=== PATIENT | female | born 1960 | race Caucasian/White ===

== ENCOUNTER 2020-02-19 10:34 | Inpatient (IN) | payer BC, OTHER ==
[~2020-02-19] VITALS: Ht 162.6 cm; Wt 54.1 kg
[2020-02-19] MEDS ORDERED: AZITHROMYCIN 500MG/ 250ML 250 ML IV ONE (11:00)
[2020-02-19 12:04] LABS: Basophils # (auto) 0 10 ^3/uL (0-0.2); Basophils % (auto) 0.6 % (0.0-2.0); Eosinophils # (auto) 0.1 10 ^3/uL (0-0.8); Monocytes # (auto) 0.5 10 ^3/uL (0-1.3); White Blood Cell 5.5 10^3/uL (4.4-10.8)
[2020-02-19 12:06] LABS: Eosinophils % (auto) 1.7 % (0.0-7.0); Hematocrit 30.8 % (36.0-46.0); Hemoglobin 9.8 g/dL (12.2-16.2); Lymphocytes % (auto) 18.3 % (10.0-50.0); Mean Corpuscular Hemoglobin 26.6 pg (28.0-32.0); Mean Corpuscular Hgb Conc. 31.7 g/dL (32.0-36.0); Mean Corpuscular Volume 83.9 fL (80.0-100.0); Monocytes % (auto) 9.7 % (0.0-12.0); Neutrophils # (auto) 3.8 10 ^3/uL (1.6-8.6); Neutrophils % (auto) 69.7 % (37.0-80.0); Red Blood Cells 3.67 10^6/uL (4.0-5.20); Red Cell Distribution Width 19.4 % (11.8-14.3)
[2020-02-19 12:12] LABS: Urine Bacteria MANY /hpf (None Seen); Urine Blood 2+ /uL (Negative); Urine Specific Gravity 1.015 (1.001-1.035); Urine WBC 312 /hpf (0 - 5); Urine WBC Clumps PRESENT /hpf (None Seen)
[2020-02-19 12:24] LABS: Albumin 1.9 g/dL (3.4-5.0); Calcium 8.2 mg/dL (8.5-10.1); Potassium 3.8 mmol/L (3.5-5.1)
[2020-02-19 12:28] LABS: BUN/Creatinine Ratio 23.2; Bilirubin, Total 0.2 mg/dL (0.2-1.0); Total Protein 6.8 g/dL (6.4-8.2)
[2020-02-19 13:00] LABS: Platelet Count (auto) 641 10^3/uL (140-450)
[2020-02-19] MEDS ORDERED: cefTRIAXone 1GM/50ML D5W 50 ML IV ONE ×2 (14:59→15:00)
[2020-02-19] MEDS ORDERED: PROMETHAZINE HCL 25 MG/ML 1ML IV PRN (15:00)
[2020-02-19] MEDS ORDERED: TEMAZEPAM 15 MG CAP PO PRN (15:00)
[2020-02-19] MEDS ORDERED: ACETAMINOPHEN 500 MG TAB PO PRN (15:00)
[2020-02-19] MEDS ORDERED: traMADol HCL 50 MG TAB PO PRN (15:00)
[2020-02-19] MEDS ORDERED: NITROGLYCERIN 0.4 MG SL TAB SL PRN (15:00)
[2020-02-19] MEDS ORDERED: MORPHINE SULF INJ 2 MG/ML SYRINGE 1ML IV PRN ×2 (15:00)
[2020-02-19] MEDS: SODIUM CHLORIDE 0.9% 1,000 ML IV SCH (15:04)
--- NOTE | 2020-02-19 16:04 | NUR ---
Telemetry admit from ER MORGAN,MARY admitted to Telemetry unit after SBAR received. Patient oriented to Jessica Jeter, primary RN, unit, room, bed, and unit policies regarding patient care and visiting hours. Patient now on continuous telemetry monitoring, tele box # 10 and telemetry reading on arrival to unit is sinus rhyhtm. Patient denies need for bedside oxygen, VSS. Pt weighed by bedscale and encouraged to call if they need something. All questions and concerns addressed, patient verbalized understanding. Patient noted very anxious and dependent. patient refusing to remove her pants to assess sacral area, per notes in chart patient has hx of pressure ulcer to sacrum but unable to assess at this time. Per GROCERY ASSOCIATE, pt refused assessment of wound in the ER too. Patient educated on need to assess skin and wound she verbalized understanding and continues to refuse stating she wants to eat dinner plug in her cellphone and be left alone at this time. Will try again later. Will page MD to inform regarding behavioral status. Fall precs in place per protocol Call light within reach including bed alarm on.
[2020-02-19 16:15] VITALS: BP 97/68
--- NOTE | 2020-02-19 16:18 | NUR ---
New orders received for Ativan from Dr. Crowder, Will medicate as ordered and cont to monitor.
[2020-02-19] MEDS: LORazepam 0.5 MG TAB PO PRN (16:34)
[2020-02-19 17:00] VITALS: BP 97/68
[2020-02-19] MEDS ORDERED: ACET-1156 PO (17:36)
[2020-02-19] MEDS ORDERED: BUSP15TA60 PO (17:36)
[2020-02-19] MEDS ORDERED: PANT1INJ3 PO (17:36)
[2020-02-19] MEDS ORDERED: LORA0.5T20 PO (17:36)
[2020-02-19] MEDS ORDERED: QUET200T44 PO (17:36)
[2020-02-19] MEDS ORDERED: ATOR20TA50 PO (17:36)
--- NOTE | 2020-02-19 17:36 | NUR ---
Med rec completed after call to Dinorah, patient's caregiver, was placed after pt's consent. Med rec completed on Genmab at this time. Cont care
--- NOTE | 2020-02-19 19:10 | NUR ---
Patient care endorsed endorsed care to Elizabeth brown. Patient sitting in bed in no acute distress or sob. Fall precs in place per fall protocol. Evangelista light within reach.
--- NOTE | 2020-02-19 19:15 | NUR ---
opening note pt alert and oriented x4. respirations even nonlabored on room air. POC discussed. bed in low locked position, call light within reach.
[2020-02-19 22:00] VITALS: BP 110/56
[2020-02-19] MEDS: FAMOTIDINE 20 MG TAB PO SCH (22:43)
[2020-02-20] MEDS: SODIUM CHLORIDE 0.9% 1,000 ML IV SCH ×3 (03:45→22:34)
[2020-02-20 05:00] VITALS: BP 114/77
--- NOTE | 2020-02-20 05:40 | NUR ---
pictures taken of pressure ulcers at left buttock and sacrum. optifoam applied.
--- NOTE | 2020-02-20 07:24 | NUR ---
closing note pt resting in semi fowlers with eyes closed. no s/s of pain or discomfort. endorsed care to day shift JEANNETTE Spear.
[2020-02-20] MEDS: FAMOTIDINE 20 MG TAB PO SCH ×2 (08:47→22:35)
[2020-02-20] MEDS: LORazepam 0.5 MG TAB PO PRN (08:47)
[2020-02-20] MEDS: cefTRIAXone 1GM/50ML D5W 50 ML IV SCH (08:47)
--- NOTE | 2020-02-20 08:58 | NUR ---
Patient requesting anxiety meds at this time she states she's feeling anxious. Medicated as ordered. Fall precs in place cont to monitor
[2020-02-20 09:00] VITALS: BP 122/77
[2020-02-20 09:18] LABS: Basophils # (auto) 0 10 ^3/uL (0-0.2); Eosinophils # (auto) 0.1 10 ^3/uL (0-0.8); Eosinophils % (auto) 2.5 % (0.0-7.0); Lymphocytes # (auto) 1.1 10 ^3/uL (0.4-5.4); Monocytes # (auto) 0.2 10 ^3/uL (0-1.3); White Blood Cell 5.6 10^3/uL (4.4-10.8)
[2020-02-20 09:20] LABS: Basophils % (auto) 0.8 % (0.0-2.0); Hematocrit 30.3 % (36.0-46.0); Hemoglobin 9.7 g/dL (12.2-16.2); Lymphocytes % (auto) 19.5 % (10.0-50.0); Mean Corpuscular Hemoglobin 26.9 pg (28.0-32.0); Monocytes % (auto) 4.3 % (0.0-12.0); Neutrophils % (auto) 72.9 % (37.0-80.0); Platelet Count (auto) 590 10^3/uL (140-450); Red Blood Cells 3.61 10^6/uL (4.0-5.20); Red Cell Distribution Width 19.4 % (11.8-14.3)
[2020-02-20] MEDS: CHOLECALCIFEROL (VITD3) 2,000 UNIT CAP PO SCH (10:15)
[2020-02-20] MEDS: ZINC SULFATE 220mg CAP or TAB PO SCH (10:16)
[2020-02-20] MEDS: ENOXAPARIN SOD 40 MG/0.4 ML SYRINGE SC SCH (10:16)
[2020-02-20] MEDS: ASCORBIC ACID 1,000 MG TAB PO SCH (10:16)
[2020-02-20] MEDS: DexAMETHasone SOD PHOS 10MG/1ML VIAL INJ IV SCH (10:17)
--- NOTE | 2020-02-20 11:20 | NUR ---
Spoke to family welfare social work professor relations liaison notified Ketty Lombardi of pending consult for ss regarding B&C Ketty states she will f/u tomorrow when she comes in. No dc order at this time [facility] care
--- NOTE | 2020-02-20 11:45 | NUR ---
WOUND CARE NOTE: WOUND CARE IN TO SEE PATIENT PER WOUND CARE REQUEST. PATIENT ADMITTED TO [facility] FOR COVID +, TACHYCARDIA, ANEMIA, UTI, AND THROMBOCYTOSIS. BEDSIDE NURSE NOTED SKIN INTEGRITY ISSUES UPON ADMISSION. PHOTOGRAPHS TAKEN AT THIS TIME FOR REFERENCE. PATIENT DAT SCORE IS 15. PATIENT HAS LARGE STAGE 3 PRESSURE INJURY TO SACRUM MEASURING 9x9x1.5cm. WOUND IS REDDENED WITH MINIMAL SEROSANGUINEOUS DRAINAGE AND ROLLED EDGES. PATIENT ALSO NOTED TO HAVE A STAGE 3 PRESSURE INJURY TO THE LEFT BUTTOCK MEASURING 4.5x2x0.5cm. ORDERED SPECIALTY MATTRESS. RECOMMEND: BID/PRN DRESSING CHANGES TO SACRUM AND LEFT BUTTOCK. SPECIALTY AIR MATTRESS. PATIENT TO BE TRANSFERRED UPON DELIVERY BY [facility]. FREQUENT Q2HOUR REPOSITIONING CONDITION PERMITS. REDISTRIBUTE PRESSURE UTILIZING PILLOWS AND WEDGES. SKIN/WOUND CARE PLAN. CONTINUED MONITORING BY WOULD CARE TEAM. Addendum: 02/20/20 at 1510 by JAZ WALKER RN RN Amended: Links added.
[2020-02-20 13:00] VITALS: BP 115/71
[2020-02-20] MEDS: ALBUTEROL SULF HFA 90MCG INH 200DOSE IN SCH ×2 (14:00→22:00)
--- NOTE | 2020-02-20 15:30 | NUR ---
Respiratory note: PT REFUSING MDI. PT INFORMED OF TX AND STILL REFUSING. RN AWARE.
[2020-02-20 17:00] VITALS: BP 119/76
--- NOTE | 2020-02-20 19:00 | NUR ---
Patient care endorsed endorsed care to Elizabeth brown. Patient sitting up in bed no acute distress or sob noted. Call light within reach
--- NOTE | 2020-02-20 20:50 | NUR ---
specialty mattress arrived
--- NOTE | 2020-02-20 21:00 | NUR ---
Patient is refusing to be transferred to specialty. Patient states "no, I am refusing, I am not moving. I like this bed I am in right now. No." This nurse and Rhianna nurse aid educated the patient on the importance of the speciality mattress, as the patient suffers from 2 stage 3 pressure ulcers. The benefits of the specialty mattress were explained to the patient. However, the patient continued to refuse to be transferred. Patient also states that "I am comfortable on this bed, I like this bed, I am not moving."
[2020-02-20 22:00] VITALS: BP 125/71
--- NOTE | 2020-02-20 23:00 | NUR ---
Respiratory note: PT REFUSING MDI TX. PT STATES " I DON'T NEED THEM MY BREATHING IS PERFECTLY FINE". EXPLAINED BENEFITS OF TX. PT STILL REFUSING. WILL COMMUNICATE TO RN WHEN AVAILABLE.
[2020-02-21 05:00] VITALS: BP 110/72
[2020-02-21] MEDS: SODIUM CHLORIDE 0.9% 1,000 ML IV SCH (06:51)
--- NOTE | 2020-02-21 06:52 | NUR ---
pt is still refusing to be transferred to speciality mattress. will pass on to day shift RN.
[2020-02-21] MEDS: ALBUTEROL SULF HFA 90MCG INH 200DOSE IN SCH ×3 (07:10→22:00)
--- NOTE | 2020-02-21 07:10 | NUR ---
Respiratory note: PATIENT REFUSED 0600 MDI/DPI THERAPY AT THIS TIME. PATIENT IN NO ACUTE RESPIRATORY DISTRESS AT THIS TIME. SPO2 96% ON R/A. ALL OTHER VITALS WNL.
--- NOTE | 2020-02-21 07:33 | NUR ---
closing note pt resting in semi fowlers with HOB at 30 degrees. pt denies pain or distress. endorsed care to day shift RN.
--- NOTE | 2020-02-21 07:35 | NUR ---
opening note assumed care of patient from NOC RN. Patient AOx3, no s/s of distress or SOB noted. Bed is in lowest locked position, side rails up x2, and call light is within reach. Updated patient on plan of care and patient verbalized understanding, reinforcement is needed. Will continue to monitor q1hr and PRN.
[2020-02-21 09:00] VITALS: BP 106/73
[2020-02-21] MEDS: cefTRIAXone 1GM/50ML D5W 50 ML IV SCH (11:20)
[2020-02-21 11:21] VITALS: BP 106/73
[2020-02-21] MEDS: DexAMETHasone SOD PHOS 10MG/1ML VIAL INJ IV SCH (11:21)
[2020-02-21] MEDS: ZINC SULFATE 220mg CAP or TAB PO SCH (11:21)
[2020-02-21] MEDS: CHOLECALCIFEROL (VITD3) 2,000 UNIT CAP PO SCH (11:21)
[2020-02-21] MEDS: FAMOTIDINE 20 MG TAB PO SCH ×2 (11:21→23:08)
[2020-02-21] MEDS: ASCORBIC ACID 1,000 MG TAB PO SCH (11:21)
[2020-02-21] MEDS: ENOXAPARIN SOD 40 MG/0.4 ML SYRINGE SC SCH (11:22)
--- NOTE | 2020-02-21 12:35 | NUR ---
dressing change Changed sacral dressing. Applied Optifoam. Left buttock dressing clean dry and intact. Will continue to monitor.
--- NOTE | 2020-02-21 12:52 | NUR ---
specialty mattress Informed patient that specialty mattress was ordered, educated patient on the importance of using specialty mattress as prescribed. Patient verbalized refusal stating "I do not want to go on that bed, I like this bed." Will continue to monitor.
[2020-02-21 13:00] VITALS: BP 104/66
--- NOTE | 2020-02-21 13:50 | NUR ---
Urinary catheter Per patient Capellan was placed at [facility] on February 16.
--- NOTE | 2020-02-21 14:25 | NUR ---
Respiratory note: PATIENT REFUSED 1400 MDI THERAPY AT THIS TIME. PATIENT IN NO ACUTE RESPIRATORY DISTRESS AT THIS TIME. SPO2 96% ON R/A. ALL OTHER VITALS WNL.
--- NOTE | 2020-02-21 14:57 | NUR ---
Physician rounding Dr. Zuluaga at bedside. MD updated patient on plan of care, patient verbalized understanding. Will continue to monitor.
--- NOTE | 2020-02-21 15:12 | NUR ---
Spoke with pharmacy care coordinator Spoke with patients pharmacy care coordinator Dinorah. Per Dinorah patients home medications listed in the medication reconciliation are correct. Per Dinorah patient does not take any other medications. Asked Dinorah about when Capellan catheter was placed, Dinorah stated that she did not know when Capellan was placed. Will inform .
--- NOTE | 2020-02-21 15:54 | NUR ---
assessment Patient is a 59 year old female who is alert and oriented. Prior to admission patient lived at [facility] and needed assistance. Per patient she has a fww for home use. I informed patient she has a consult stating she cannot return to [facility]. Patient informed me she has to be negative prior to returning home. Patient informed me she has no money to pay for other living arrangement. Patient informed me she wants to stay here until she is negative. I informed patient once she is medically cleared she will have to be discharged. Patient informed me she will talk to Manolo at [facility] to see what she recommends. I will follow up in the morning. Addendum: 02/21/20 at 1600 by Ketty LARIOS Amended: Links added.
[2020-02-21 17:00] VITALS: BP 122/73
[2020-02-21 18:54] LABS: % Iron Saturation 20.4 % (15-50)
--- NOTE | 2020-02-21 19:01 | NUR ---
end of shift note Endorsed care to NOC RN. No s/s of distress noted.
[2020-02-21 19:02] LABS: Folate (Folic Acid) 12.28 ng/mL (5.38-24)
[2020-02-21 22:00] VITALS: BP 110/78
--- NOTE | 2020-02-22 05:00 | NUR ---
wound dressing changed
[2020-02-22 05:16] VITALS: BP 124/76
--- NOTE | 2020-02-22 07:40 | NUR ---
Opening note Assumed care of patient from NOC RN. Patient is AOx3, no s/s of distress or SOB noted. Bed is in lowest locked position, side rails up x2 and call light is within reach. Updated patient on plan of care and reinforcement is needed. Will continue to monitor q1hr and PRN.
[2020-02-22] MEDS: ALBUTEROL SULF HFA 90MCG INH 200DOSE IN SCH ×3 (08:02→20:53)
[2020-02-22 08:29] VITALS: BP 116/77
[2020-02-22] MEDS: cefTRIAXone 1GM/50ML D5W 50 ML IV SCH (09:30)
[2020-02-22] MEDS: ZINC SULFATE 220mg CAP or TAB PO SCH (09:30)
[2020-02-22] MEDS: FAMOTIDINE 20 MG TAB PO SCH ×2 (09:30→21:34)
[2020-02-22] MEDS: DexAMETHasone 4 MG TAB PO SCH (09:30)
--- NOTE | 2020-02-22 09:30 | NUR ---
Specialty mattress Educated patient on the importance of being placed on the specialty mattress. Patient verbalized understanding and agreed to be placed on the bed. Will transfer patient. Will continue to monitor.
[2020-02-22] MEDS: ASCORBIC ACID 1,000 MG TAB PO SCH (09:34)
[2020-02-22] MEDS: ENOXAPARIN SOD 40 MG/0.4 ML SYRINGE SC SCH (09:34)
[2020-02-22] MEDS: CHOLECALCIFEROL (VITD3) 2,000 UNIT CAP PO SCH (09:34)
--- NOTE | 2020-02-22 09:45 | NUR ---
Catheter Per patient catheter was placed on February 16. Educated patient on catheter change, patient verbalized refusal. Patient stated "I do not want it changed, this one is new." Will continue to monitor.
--- NOTE | 2020-02-22 10:15 | NUR ---
Patient transferred to specialty mattress. No s/s of distress noted, patient tolerated well. Will continue to monitor.
[2020-02-22 12:07] VITALS: BP 100/64
--- NOTE | 2020-02-22 13:50 | NUR ---
Received call from Received call from Dr. Zuluaga. Updated MD on patient status. No new orders received, will continue care.
--- NOTE | 2020-02-22 15:49 | NUR ---
Nutrition Assessment Notes Please refer to link for full assessment notes. Est Energy needs: 9958-3420 kcals (25-30 kcal/kgBW) d/t pt is underweight Est Protein needs: 44-55 gms/day (0.8-1.0 gm/kgIBW) d/t pt is underweight Will continue to monitor and reassess prn. Addendum: 02/22/20 at [address] Amended: Links added.
[2020-02-22 17:01] VITALS: BP 103/62
--- NOTE | 2020-02-22 19:10 | NUR ---
Opening Shift Note Received report from leoncio Murray RN. Assumed care of patient, awake and alert, talking on the phone. No S/S of distress/SOB or pain. Patient is on room air saturating at 92%. Instructed on POC and to call for assist PRN, will continue to monitor for changes Q1hr and PRN. Bed placed in lowest position, bed alarm turned on and call light within reach.
--- NOTE | 2020-02-22 19:10 | NUR ---
end of shift note endorsed care to NOC rn. No s/s of distress noted
[2020-02-22 22:00] VITALS: BP 116/69
[2020-02-23 05:00] VITALS: BP 119/76
[2020-02-23] MEDS: ALBUTEROL SULF HFA 90MCG INH 200DOSE IN SCH ×3 (07:16→22:00)
--- NOTE | 2020-02-23 07:30 | NUR ---
PATIENT STATES SHE WANTS TO WAIT UNTIL LATER FOR DRESSING CHANGE. WILL ENDORSE TO DAY RN
--- NOTE | 2020-02-23 08:12 | NUR ---
DRESSING CHANGED ORDERED. CLEANSED WOUND WITH WOUND CLEANSER, PAT DRY WITH GAUZE. APPLY THERA HONEY AND COVERED WITH FOAM DRESSING. LARGE AMOUNT OF SEROUS AND YELLOWISH DRAINAGE WITH BAD ODOR NOTED. PATIENT TOLERATED WELL. PATIENT REFUSED TO CHANGE PANTS.
[2020-02-23 08:29] VITALS: BP 109/72
[2020-02-23] MEDS: CHOLECALCIFEROL (VITD3) 2,000 UNIT CAP PO SCH (09:26)
[2020-02-23] MEDS: ZINC SULFATE 220mg CAP or TAB PO SCH (09:26)
[2020-02-23] MEDS: FAMOTIDINE 20 MG TAB PO SCH ×2 (09:26→22:08)
[2020-02-23] MEDS: DexAMETHasone 4 MG TAB PO SCH (09:26)
[2020-02-23] MEDS: ASCORBIC ACID 1,000 MG TAB PO SCH (09:26)
[2020-02-23] MEDS: cefTRIAXone 1GM/50ML D5W 50 ML IV SCH (09:26)
[2020-02-23] MEDS: ENOXAPARIN SOD 40 MG/0.4 ML SYRINGE SC SCH (09:27)
[2020-02-23 13:19] VITALS: BP 115/72
[2020-02-23 13:55] LABS: Urine Bacteria NONE SEEN /hpf (None Seen); Urine Blood TRACE /uL (Negative); Urine Mucus FEW (None Seen); Urine Specific Gravity 1.019 (1.001-1.035); Urine WBC 158 /hpf (0 - 5); Urine WBC Clumps PRESENT /hpf (None Seen)
--- NOTE | 2020-02-23 16:34 | NUR ---
DRESSING TO LEFT BUTTOCK AND POSTERIOR SACRUM SATURATED WITH SEROSANGUINEOUS DRAINING. WOUND TO POSTERIOR SACRUM PINK AT WOUND BED. WOUND TO LEFT BUTTOCK DARK WITH ESCHAR. DRESSING CHANGED PER M.D. ORDERS. PATIENT TOLERATED WELL. PATIENT EDUCATED ON IMPORTANCE OF TURNING AGAIN. VERBALIZED UNDERSTANDING.
[2020-02-23 16:53] VITALS: BP 112/69
--- NOTE | 2020-02-23 19:20 | NUR ---
Opening Shift Note Received report from leoncio Alvarado RN. Assumed care of patient, awake and alert, watching TV. No S/S of distress/SOB or pain. Patient is on room air saturating at 94%. Instructed on POC and to call for assist PRN, will continue to monitor for changes Q1hr and PRN. Bed placed in lowest position, bed alarm turned on and call light within reach.
[2020-02-23 23:15] VITALS: BP 115/88
--- NOTE | 2020-02-24 01:30 | NUR ---
WOUND DRESSING CHANGED DRESSING CHANGED TO LEFT BUTTOCK AND POSTERIOR SACRUM ORDERED. DRESSING SATURATED WITH SEROUS DRAINAGE WITH ODOR. CLEANSED WOUND WITH WOUND CLEANSER. PAT DRY WITH STERILE GAUZE. APPLIED THERA HONEY TO WOUND BED AND COVERED WITH FOAM DRESSING. WOUND TO POSTERIOR SACRUM IS PINK WITH GRANULATION. WOUND TO LEFT BUTTOCK HAS DARK ESCHAR TO WOUND BED. PATIENT TOLERATED WELL. PATIENT EDUCATED ON IMPORTANCE OF TURNING AGAIN. VERBALIZED UNDERSTANDING.
--- NOTE | 2020-02-24 06:07 | NUR ---
Patient refused IV Patient refused IV replacement at this time. Patient states "Can we do that later, I'm still asleep." Will try again later.
--- NOTE | 2020-02-24 07:30 | NUR ---
Opening Shift Note Assumed care of patient, awake and alert. No S/S of distress/SOB or pain. Instructed on POC and to call for assist PRN, will continue to monitor for changes Q1hr and PRN. Fall precautions in place per safety protocol.
[2020-02-24 09:00] VITALS: BP 117/64
[2020-02-24] MEDS: ZINC SULFATE 220mg CAP or TAB PO SCH ×2 (09:03→09:51)
[2020-02-24] MEDS: cefTRIAXone 1GM/50ML D5W 50 ML IV SCH ×2 (09:03→09:51)
[2020-02-24] MEDS: FAMOTIDINE 20 MG TAB PO SCH ×3 (09:04→22:04)
[2020-02-24] MEDS: DexAMETHasone 4 MG TAB PO SCH ×2 (09:04→09:52)
[2020-02-24] MEDS: CHOLECALCIFEROL (VITD3) 2,000 UNIT CAP PO SCH ×2 (09:04→09:52)
[2020-02-24] MEDS: ASCORBIC ACID 1,000 MG TAB PO SCH ×2 (09:04→09:52)
[2020-02-24] MEDS: ENOXAPARIN SOD 40 MG/0.4 ML SYRINGE SC SCH ×2 (09:05→09:52)
--- NOTE | 2020-02-24 10:45 | NUR ---
IV removal IV DC'd due to leakage. Sterile technique and catheter fully intact. Pressure dressing applied to site. Patient tolerated procedure well. IV insertion IV access obtained, via clean sterile technique by inserting 22 gauge catheter at [facility] after 1 attempt. IV secured properly. No trauma to site. Patient tolerated procedure well. Wound care done at this time. Patient tolerated well. Will cont to monitor patient.
[2020-02-24] MEDS: ALBUTEROL SULF HFA 90MCG INH 200DOSE IN SCH ×3 (12:42→22:48)
[2020-02-24 13:09] VITALS: BP 111/76
--- NOTE | 2020-02-24 14:06 | NUR ---
Covid Patient's covid results were positive at this time. MD Zuluaga aware. Md Zuluaga at bedside, aware of patient status. No new orders received at this time. Will cont to monitor patient.
[2020-02-24 17:23] VITALS: BP 114/72
--- NOTE | 2020-02-24 19:12 | NUR ---
Spoke to patient "JACQUELIN Ramirez. Per Ashley, she really needs to speak to social service regarding patient's living situation. Per Ashley, patient has no insurance or family that can take her in. Will endorse to night RN.
--- NOTE | 2020-02-24 19:30 | NUR ---
Opening Shift Note Assumed care of patient. Patient is wake, alert, and oriented X 3. No S/S of respiratory distress noted. No pain reported. Respirations are regular and non-labored. Pt is on RA with SpO2 92%. Capellan is patent. Colostomy bag contains hard dark brown feces. Bed in lowest locked position, bed rails x 2 up, call light is within reach. Patient was instructed on POC and to call for assistance as needed. Will continue to monitor for changes Q1hr and PRN.
[2020-02-24 20:00] VITALS: BP 123/77
[2020-02-24 20:54] VITALS: BP 123/77
--- NOTE | 2020-02-24 20:55 | NUR ---
WOUND DRESSING CHANGED DRESSING CHANGED TO LEFT BUTTOCK AND SACRUM ORDERED. COVERED WITH FOAM DRESSING. PATIENT TOLERATED WELL. PATIENT EDUCATED ON IMPORTANCE OF TURNING AT LEAST EVERY HOUR. VERBALIZED UNDERSTANDING.
[2020-02-24 22:30] VITALS: BP 123/77
[2020-02-25 05:00] VITALS: BP 125/84
[2020-02-25] MEDS: ALBUTEROL SULF HFA 90MCG INH 200DOSE IN SCH ×3 (07:50→21:22)
[2020-02-25] MEDS: cefTRIAXone 1GM/50ML D5W 50 ML IV SCH (08:38)
[2020-02-25] MEDS: ZINC SULFATE 220mg CAP or TAB PO SCH (08:39)
[2020-02-25] MEDS: ASCORBIC ACID 1,000 MG TAB PO SCH (08:39)
[2020-02-25] MEDS: FAMOTIDINE 20 MG TAB PO SCH ×2 (08:39→22:29)
[2020-02-25] MEDS: CHOLECALCIFEROL (VITD3) 2,000 UNIT CAP PO SCH (08:39)
[2020-02-25] MEDS: ENOXAPARIN SOD 40 MG/0.4 ML SYRINGE SC SCH (08:40)
[2020-02-25 09:00] VITALS: BP 113/80
[2020-02-25 12:55] VITALS: BP 110/77
--- NOTE | 2020-02-25 14:50 | NUR ---
Nutrition Followup Notes Wt: 47.1 kg Unable to speak to pt d/t pt is positive for COVID. Pt is with a regular diet, with adequate Po of > 75% x 6 per RN doc Est Energy needs: 6910-7128 kcals (25-30 kcal/kgBW) d/t pt is underweight, Est Protein needs: 44-55 gms/day (0.8-1.0 gm/kgIBW) d/t pt is underweight. Will continue to monitor and reassess prn. LABS: All nutrition related labs wnl for today GI: Pt had 1 BM 02/13 per RN doc BS: 15 mod risk. Refer to wound assessment report for full details. PES: 1) Underweight aeb 87% IBW and BMI of 17.9 kg/m2 r/t energy intake less than energy needs 2) Altered nutrition related lab values aeb severe hypoalbuminemia r/t current medical condition Comments Will continue to monitor PO status, skin status, pertinent labs and weight trends. Will f/u in 3-5 days. 1) If albumin continues trending down consider Prostat 1 pkt bid. 2) Continue current plan of care
[2020-02-25 17:00] VITALS: BP 106/64
[2020-02-25] MEDS: Ensure Enlive Strawberry 8oz Bottle PO SCH (18:10)
--- NOTE | 2020-02-25 19:35 | NUR ---
Opening Shift Note Assumed care of patient. Patient is wake, alert, and oriented X 3. No S/S of respiratory distress noted. No pain reported. Respirations are regular and non-labored. Pt is on RA. Bed in lowest locked position, bed rails x 2 up, call light is within reach. Patient was instructed on POC and to call for assistance as needed. Will continue to monitor for changes Q1hr and PRN.
[2020-02-25 20:00] VITALS: BP 107/72
--- NOTE | 2020-02-25 20:05 | NUR ---
Colostomy bag. Colostomy bag emptied. Moderate amount of hard brown feces.
[2020-02-25 22:00] VITALS: BP 107/72
[2020-02-25] MEDS: NITROFURANTOIN 100 mg CAP PO SCH (22:29)
--- NOTE | 2020-02-25 23:20 | NUR ---
DRESSING CHANGED Dressing changed on sacrum and left buttock. Patient tolerated well.
[2020-02-26 05:00] VITALS: BP 118/78
[2020-02-26 05:52] LABS: Hemoglobin 11.5 g/dL (12.2-16.2); Mean Corpuscular Hgb Conc. 31.9 g/dL (32.0-36.0); Mean Corpuscular Volume 84.7 fL (80.0-100.0); Platelet Count (auto) 745 10^3/uL (140-450); Red Blood Cells 4.25 10^6/uL (4.0-5.20); White Blood Cell 9.2 10^3/uL (4.4-10.8)
[2020-02-26 05:55] LABS: Red Cell Distribution Width 20.4 % (11.8-14.3)
[2020-02-26 05:56] LABS: Basophils % (manual) 0 (0.0-2.0); Blast Cells 0; Metamyelocytes % 0; Myelocytes % 0; Promyelocytes % 0; Reactive Lymphocytes 0
[2020-02-26 06:16] LABS: Band Neutrophils % (manual) 1; Eosinophils % (manual) 2 (0-7); Lymphocytes % (manual) 23 (10.0-50.0); Monocytes % (manual) 6 (0-12)
[2020-02-26] MEDS: ALBUTEROL SULF HFA 90MCG INH 200DOSE IN SCH ×3 (07:18→23:15)
[2020-02-26] MEDS: ZINC SULFATE 220mg CAP or TAB PO SCH (08:51)
[2020-02-26] MEDS: ENOXAPARIN SOD 40 MG/0.4 ML SYRINGE SC SCH (08:51)
[2020-02-26] MEDS: FAMOTIDINE 20 MG TAB PO SCH ×2 (08:52→21:24)
[2020-02-26] MEDS: ASCORBIC ACID 1,000 MG TAB PO SCH (08:52)
[2020-02-26] MEDS: CHOLECALCIFEROL (VITD3) 2,000 UNIT CAP PO SCH (08:52)
[2020-02-26] MEDS: NITROFURANTOIN 100 mg CAP PO SCH ×2 (08:52→21:24)
[2020-02-26] MEDS: Ensure Enlive Strawberry 8oz Bottle PO SCH ×2 (08:53→18:00)
[2020-02-26 09:00] VITALS: BP 143/78
[2020-02-26 12:45] VITALS: BP 108/64
[2020-02-26] MEDS ORDERED: CEFTRIAXONE SODIUM 2 GM in D5W 5% 50 ML IV ONE (13:15)
[2020-02-26 16:50] VITALS: BP 114/62
--- NOTE | 2020-02-26 20:00 | NUR ---
Opening Shift Note Assumed care of patient, awake and alert x4. Patient denies pain or shortness of breath at this time. No sign/symptoms of distress noted or verbalized at this time. Instructed on plan of care and encouraged patient to call for assistance as needed, patient verbalized understanding. Bed is locked in lowest position, side rails x 2 are up, call light is within reach, and bed alarm is on.
--- NOTE | 2020-02-26 21:00 | NUR ---
Wound Care Dressing to posterior scarum and left buttock changed as ordered. Minimal serosanguineous drainage noted on dressing. Wound on posterior sacrum is pink with granulation. Posterior sacrum cleansed with wound cleanser, patted dry with sterile gauze, therahoney applied, and covered with Optifoam. Wound to left buttock has dark eschar with slough to wound bed. Wound to left buttock cleansed with wound cleanser, patted dry with sterile gauze, therahoney applied, and covered with Optifoam. Patient tolerated well. Patient educated on the importance of repositioning every 2 hours, patient verbalized understanding.
[2020-02-26 21:30] VITALS: BP 104/60
[2020-02-27 05:00] VITALS: BP 102/66
--- NOTE | 2020-02-27 05:58 | NUR ---
Colostomy Bag Colostomy bag emptied. Formed moderate amount of brown stool emptied.
[2020-02-27 06:22] LABS: Hematocrit 34.8 % (36.0-46.0); Hemoglobin 11.4 g/dL (12.2-16.2); Mean Corpuscular Hemoglobin 27.6 pg (28.0-32.0); Mean Corpuscular Hgb Conc. 32.9 g/dL (32.0-36.0); Platelet Count (auto) 687 10^3/uL (140-450); Red Blood Cells 4.14 10^6/uL (4.0-5.20); Red Cell Distribution Width 20.4 % (11.8-14.3); White Blood Cell 7.5 10^3/uL (4.4-10.8)
[2020-02-27 06:23] LABS: Band Neutrophils % (manual) 0; Basophils % (manual) 0 (0.0-2.0); Blast Cells 0; Myelocytes % 0; Promyelocytes % 0; Reactive Lymphocytes 0
[2020-02-27 06:37] LABS: Albumin 2.3 g/dL (3.4-5.0); Potassium 3.9 mmol/L (3.5-5.1)
[2020-02-27 06:43] LABS: Bilirubin, Total 0.2 mg/dL (0.2-1.0); Calcium 8.3 mg/dL (8.5-10.1); Magnesium 2.3 mg/dL (1.6-2.6); Phosphorus 3.2 mg/dL (2.5-4.90); Total Protein 6.8 g/dL (6.4-8.2)
[2020-02-27] MEDS: ALBUTEROL SULF HFA 90MCG INH 200DOSE IN SCH ×3 (07:12→23:01)
[2020-02-27 08:24] VITALS: BP 106/62
[2020-02-27] MEDS: cefTRIAXone 1GM/50ML D5W 50 ML IV SCH (08:39)
[2020-02-27] MEDS: ENOXAPARIN SOD 40 MG/0.4 ML SYRINGE SC SCH (08:41)
[2020-02-27] MEDS: NITROFURANTOIN 100 mg CAP PO SCH ×2 (08:42→21:04)
[2020-02-27] MEDS: ASCORBIC ACID 1,000 MG TAB PO SCH (08:43)
[2020-02-27] MEDS: FAMOTIDINE 20 MG TAB PO SCH ×2 (08:43→21:05)
[2020-02-27] MEDS: ZINC SULFATE 220mg CAP or TAB PO SCH (08:44)
[2020-02-27] MEDS: CHOLECALCIFEROL (VITD3) 2,000 UNIT CAP PO SCH (08:47)
[2020-02-27 08:48] LABS: Eosinophils % (manual) 4 (0-7); Lymphocytes % (manual) 20 (10.0-50.0); Metamyelocytes % 2; Monocytes % (manual) 6 (0-12)
[2020-02-27] MEDS: Ensure Enlive Strawberry 8oz Bottle PO SCH ×2 (08:48→18:25)
--- NOTE | 2020-02-27 10:53 | NUR ---
WOUND CARE NOTE: WOUND CARE IN TO SEE PATIENT FOR REEVALUATION. PATIENT DAT SCORE IS 14. PATIENT HAS LARGE STAGE 3 PRESSURE INJURY TO SACRUM MEASURING 9x7.8x1.5cm. WOUND IS REDDENED WITH MINIMAL SEROUS DRAINAGE AND ROLLED EDGES. PATIENT ALSO NOTED TO HAVE A STAGE 3 PRESSURE INJURY TO THE LEFT BUTTOCK MEASURING 3.8x2x0.5cm. RECOMMEND: FREQUENT Q2HOUR REPOSITIONING CONDITION PERMITS. REDISTRIBUTE PRESSURE UTILIZING PILLOWS AND WEDGES. SIDE TO SIDE POSITIONING ONLY. BID/PRN DRESSING CHANGES TO SACRUM AND LEFT BUTTOCK. SKIN/WOUND CARE PLAN. CONTINUED MONITORING BY WOULD CARE TEAM. Addendum: 02/27/20 at 1203 by JAZ WALKER RN RN Amended: Links added.
[2020-02-27 13:12] VITALS: BP 113/63
[2020-02-27] MEDS ORDERED: SODIUM FERR GLUC 62.5MG/5ML 125 MG in SODIUM CHL 0.9% 100 ML IV ONE (14:15)
[2020-02-27 17:00] VITALS: BP 109/63
--- NOTE | 2020-02-27 18:19 | NUR ---
IV removal IV infiltrated and removed with clean sterile technique, catheter fully intact. Pressure dressing applied to site. Patient tolerated well. Patient refusing new IV at this time. Patient educated on importance of having a IV, patient verbalized understanding and stated "I want to wait on getting another IV". Will try again later.
--- NOTE | 2020-02-27 20:00 | NUR ---
Opening Shift Note Assumed care of patient, awake and alert x4 from Cindy MACHADO. Patient has no IV access at this time. Patient denies pain or shortness of breath at this time. No sign/symptoms of distress noted or verbalized at this time. Instructed on plan of care and encouraged patient to call for assistance as needed, patient verbalized understanding. Bed is locked in lowest position, side rails x 2 are up, call light is within reach, and bed alarm is on.
--- NOTE | 2020-02-27 20:20 | NUR ---
Colostomy Bag Colostomy bag emptied. Formed moderate amount of brown stool emptied.
--- NOTE | 2020-02-27 20:40 | NUR ---
Wound Care Dressing to posterior scarum and left buttock changed as ordered. Minimal serous drainage noted on dressing. Wound on posterior sacrum is bright red with granulation. Posterior sacrum cleansed with wound cleanser, patted dry with sterile gauze, therahoney applied, and covered with Optifoam. Wound to left buttock has dark eschar with slough to wound bed. Wound to left buttock cleansed with wound cleanser, patted dry with sterile gauze, therahoney applied, and covered with Optifoam. Patient tolerated well. Patient educated on the importance of repositioning every 2 hours, patient verbalized understanding.
--- NOTE | 2020-02-27 21:00 | NUR ---
IV Insertion IV access obtained, via clean sterile technique by inserting 22 gauge catheter at left wrist after 1 attempt. IV secured properly. No trauma to site. Patient tolerated well.
[2020-02-27 22:00] VITALS: BP 113/70
--- NOTE | 2020-02-27 23:57 | NUR ---
Patient Refusing to Reposition at this Time Patient refusing to turn at this time. Patient educated on the importance of repositioning every couple of hours to reduce the chances of skin breakdown and to prevent her wounds from getting worse, patient verbalized understanding, and continues to refuse repositioning at this time. Patient reports she is comfortable with the pillow under her left buttock. This RN reinforced the importance of repositioning, patient continues to refuse and states "no I'm fine thank you." Will attempt and encourage patient to turn at a later time.
--- NOTE | 2020-02-28 02:00 | NUR ---
Patient Refusing to Reposition at this Time Patient refusing to turn at this time. Patient educated on the importance of repositioning every couple of hours to reduce the chances of skin breakdown and to prevent her wounds from getting worse, patient verbalized understanding, and continues to refuse repositioning at this time. This RN reinforced the importance of repositioning, patient verbalized understanding, continues to refuse, and continues to state "no I'm fine."
[2020-02-28 05:00] VITALS: BP 119/75
--- NOTE | 2020-02-28 06:00 | NUR ---
Patient refusing to turn at this time Patient refusing to turn at this time. Educated patient on the importance of repositioning every 2 hours to prevent her wounds from becoming worse and to prevent new skin breakdown, patient verbalized understanding and continues to refuse repositioning at this time.
[2020-02-28] MEDS: ALBUTEROL SULF HFA 90MCG INH 200DOSE IN SCH ×3 (06:54→21:05)
--- NOTE | 2020-02-28 07:40 | NUR ---
Opening Shift Note Assumed care of patient, awake and alert, forgetful . No S/S of distress/SOB or pain. Instructed on POC and to call for assist PRN, will continue to monitor for changes Q1hr and PRN.
[2020-02-28 08:00] VITALS: BP 102/60
[2020-02-28] MEDS: LORazepam 0.5 MG TAB PO PRN (09:15)
[2020-02-28 10:34] VITALS: BP 110/60
[2020-02-28 12:00] VITALS: BP 106/70
[2020-02-28] MEDS: Ensure Enlive Strawberry 8oz Bottle PO SCH ×2 (12:23→17:45)
[2020-02-28] MEDS: ZINC SULFATE 220mg CAP or TAB PO SCH (12:24)
[2020-02-28] MEDS: NITROFURANTOIN 100 mg CAP PO SCH ×2 (12:24→22:00)
[2020-02-28] MEDS: cefTRIAXone 1GM/50ML D5W 50 ML IV SCH (12:24)
[2020-02-28] MEDS: FAMOTIDINE 20 MG TAB PO SCH ×2 (12:25→22:00)
[2020-02-28] MEDS: ASCORBIC ACID 1,000 MG TAB PO SCH (12:26)
[2020-02-28] MEDS: ENOXAPARIN SOD 40 MG/0.4 ML SYRINGE SC SCH (12:26)
[2020-02-28] MEDS: CHOLECALCIFEROL (VITD3) 2,000 UNIT CAP PO SCH (12:26)
--- NOTE | 2020-02-28 14:00 | NUR ---
re-assessment I called Manolo with [facility] and informed her patient is ready for discharge. Per Manolo she cannot take patient back. Patient was only in her facility for 1 day and was then told by Mynor that patient is positive covid. Manolo informed me she will take patient back once she test negative. I asked patient how much money she has for placement and she informed me she was not leaving she is staying here. I informed patient her insurance will not pay once she is medically cleared. Patient verbalized understanding. Addendum: 02/28/20 at 1407 by Ketty LARIOS Amended: Links added.
--- NOTE | 2020-02-28 15:14 | NUR ---
Nutrition Followup Notes Wt: 56.0 kg Unable to speak to pt d/t pt is positive for COVID. Pt is with a regular diet, with adequate Po of 100% x 3 days per RN doc Est Energy needs: 2894-2359 kcals (25-30 kcal/kgBW) d/t pt is underweight, Est Protein needs: 44-55 gms/day (0.8-1.0 gm/kgIBW) d/t pt is underweight. Will continue to monitor and reassess prn. LABS: Ca 8.3 L, Alb 2.3 L GI: Pt had no BM today per RN doc BS: 12 high risk. Refer to wound assessment report for full details. PES: 1) Underweight aeb 87% IBW and BMI of 17.9 kg/m2 r/t energy intake less than energy needs 2) Altered nutrition related lab values aeb severe hypoalbuminemia r/t current medical condition Comments Will continue to monitor PO status, skin status, pertinent labs and weight trends. Will f/u in 3-5 days. 1) If albumin continues trending down consider Prostat 1 pkt bid. 2) Continue current plan of care
[2020-02-28] MEDS ORDERED: FER325T PO (16:21)
[2020-02-28] MEDS ORDERED: CHOL1CAP47 PO (16:21)
[2020-02-28] MEDS ORDERED: NITR-87 PO (16:21)
[2020-02-28] MEDS ORDERED: ASCO10003 PO (16:21)
--- NOTE | 2020-02-28 21:45 | NUR ---
changed ostomy bag
[2020-02-28 22:00] VITALS: BP 112/70
[2020-02-29 05:00] VITALS: BP 91/70
--- NOTE | 2020-02-29 05:00 | NUR ---
wound care per order. pt tolerated dressing changes well.
[2020-02-29] MEDS: ALBUTEROL SULF HFA 90MCG INH 200DOSE IN SCH ×3 (07:31→21:26)
[2020-02-29 08:00] VITALS: BP 101/59
[2020-02-29] MEDS: Ensure Enlive Strawberry 8oz Bottle PO SCH ×2 (08:00→18:00)
--- NOTE | 2020-02-29 08:15 | NUR ---
Opening Shift Note Assumed care of patient, awake and alert. No S/S of distress/SOB or pain. Instructed on POC and to call for assist PRN, will continue to monitor for changes Q1hr and PRN.
[2020-02-29 08:37] VITALS: BP 101/59
[2020-02-29 12:26] VITALS: BP 106/63
[2020-02-29] MEDS: AMOXICILLIN TRIHYDRATE 250 MG CAP PO SCH ×2 (14:29→22:44)
[2020-02-29] MEDS: ENOXAPARIN SOD 40 MG/0.4 ML SYRINGE SC SCH (14:30)
[2020-02-29] MEDS: ASCORBIC ACID 1,000 MG TAB PO SCH (14:30)
[2020-02-29] MEDS: ZINC SULFATE 220mg CAP or TAB PO SCH (14:30)
[2020-02-29] MEDS: FAMOTIDINE 20 MG TAB PO SCH ×2 (14:30→22:45)
[2020-02-29] MEDS: CHOLECALCIFEROL (VITD3) 2,000 UNIT CAP PO SCH (14:30)
[2020-02-29] MEDS: FERROUS SULFATE 325 MG TAB PO SCH (14:31)
[2020-02-29 17:12] VITALS: BP 112/63
--- NOTE | 2020-02-29 18:00 | NUR ---
Colostomy bag Patient had a formed small round brown stool. Cleansed colostomy bag. Patient tolerated well.
--- NOTE | 2020-02-29 18:03 | NUR ---
Wound Care Wound care completed per MD orders, patient tolerated well.
--- NOTE | 2020-02-29 18:59 | NUR ---
Closing Note Patient is comfortably resting in bed, no s/s of distress/noted/stated. No c/o pain. Bed at lowest locked position and call light within reach. Will endorse care to NOC RN.
[2020-02-29 21:52] VITALS: BP 105/61
[2020-02-29] MEDS: CIPROFLOXACIN HCL 500 MG TAB PO SCH (22:44)
--- NOTE | 2020-03-01 04:50 | NUR ---
colostomy bag emptied
[2020-03-01 05:00] VITALS: BP 91/72
--- NOTE | 2020-03-01 05:00 | NUR ---
wound care carried out per order. pt tolerated well.
[2020-03-01] MEDS: AMOXICILLIN TRIHYDRATE 250 MG CAP PO SCH ×3 (06:05→22:31)
[2020-03-01] MEDS: ALBUTEROL SULF HFA 90MCG INH 200DOSE IN SCH ×3 (06:36→23:34)
--- NOTE | 2020-03-01 07:33 | NUR ---
closing note pt resting in semi fowlers. no c/o pain or discomfort. endorsed care to day shift RN.
[2020-03-01 08:28] VITALS: BP 107/74
[2020-03-01] MEDS: FAMOTIDINE 20 MG TAB PO SCH ×2 (08:57→22:30)
[2020-03-01] MEDS: FERROUS SULFATE 325 MG TAB PO SCH (08:57)
[2020-03-01] MEDS: CIPROFLOXACIN HCL 500 MG TAB PO SCH ×2 (08:57→22:30)
[2020-03-01] MEDS: ZINC SULFATE 220mg CAP or TAB PO SCH (08:57)
[2020-03-01] MEDS: ASCORBIC ACID 1,000 MG TAB PO SCH (08:58)
[2020-03-01] MEDS: ENOXAPARIN SOD 40 MG/0.4 ML SYRINGE SC SCH (08:58)
[2020-03-01] MEDS: CHOLECALCIFEROL (VITD3) 2,000 UNIT CAP PO SCH (08:58)
[2020-03-01] MEDS: Ensure Enlive Strawberry 8oz Bottle PO SCH (08:59)
[2020-03-01 12:19] VITALS: BP 123/70
[2020-03-01 17:00] VITALS: BP 90/51
[2020-03-01 21:59] VITALS: BP 96/65
[2020-03-02 05:00] VITALS: BP 113/75
--- NOTE | 2020-03-02 05:00 | NUR ---
wound care carried out per order. pt tolerated well.
--- NOTE | 2020-03-02 05:10 | NUR ---
colostomy bag emptied
[2020-03-02] MEDS: AMOXICILLIN TRIHYDRATE 250 MG CAP PO SCH ×3 (06:02→21:33)
[2020-03-02] MEDS: ALBUTEROL SULF HFA 90MCG INH 200DOSE IN SCH ×2 (07:07→14:45)
--- NOTE | 2020-03-02 07:30 | NUR ---
Opening Shift Note RECEIVED REPORT FROM NOC RN. Assumed care of patient, awake and alert. No S/S of distress/SOB or pain. BED IN LOWEST, LOCKED POSITION WITH SIDERAILS UP x2 AND CALL LIGHT WITHIN REACH. Instructed on POC and to call for assist PRN, will continue to monitor for changes Q1hr and PRN.
[2020-03-02 08:00] VITALS: BP 109/73
[2020-03-02] MEDS: FERROUS SULFATE 325 MG TAB PO SCH (10:08)
[2020-03-02] MEDS: CIPROFLOXACIN HCL 500 MG TAB PO SCH ×2 (10:08→21:34)
[2020-03-02] MEDS: Ensure Enlive Strawberry 8oz Bottle PO SCH ×2 (10:08→18:39)
[2020-03-02] MEDS: ENOXAPARIN SOD 40 MG/0.4 ML SYRINGE SC SCH (10:09)
[2020-03-02] MEDS: ASCORBIC ACID 1,000 MG TAB PO SCH (10:09)
[2020-03-02] MEDS: CHOLECALCIFEROL (VITD3) 2,000 UNIT CAP PO SCH (10:09)
[2020-03-02] MEDS: ZINC SULFATE 220mg CAP or TAB PO SCH (10:09)
[2020-03-02] MEDS: FAMOTIDINE 20 MG TAB PO SCH ×2 (10:09→21:34)
[2020-03-02 12:00] VITALS: BP 107/66
[2020-03-02 13:42] VITALS: BP 107/66
--- NOTE | 2020-03-02 14:50 | NUR ---
Nutrition Followup Notes Wt: 52.6 kg Unable to speak to pt d/t pt is positive for COVID. Pt is with a regular diet, with adequate Po of 100% x 3 meals per RN doc Est Energy needs: 7022-9372 kcals (25-30 kcal/kgBW) d/t pt is underweight, Est Protein needs: 44-55 gms/day (0.8-1.0 gm/kgIBW) d/t pt is underweight. Will continue to monitor and reassess prn. LABS: BUN 26 H, Ca 8.3 L, Alb 1.6 L GI: Pt is with a colostomy, had 1 BM on 03/01 per RN doc BS: 14 mod risk. Refer to wound assessment report for full details. PES: 1) Underweight aeb 87% IBW and BMI of 17.9 kg/m2 r/t energy intake less than energy needs 2) Altered nutrition related lab values aeb severe hypoalbuminemia r/t current medical condition Comments Will continue to monitor PO status, skin status, pertinent labs and weight trends. Will f/u in 3-5 days. 1) If albumin continues trending down consider Prostat 1 pkt bid. 2) Continue current plan of care
--- NOTE | 2020-03-02 16:16 | NUR ---
Attempted PT treatment but pt refused stating she has already been up today.
[2020-03-02 17:00] VITALS: BP 109/65
[2020-03-02 22:00] VITALS: BP 129/80
[2020-03-03 05:00] VITALS: BP 102/58
--- NOTE | 2020-03-03 05:00 | NUR ---
wound care per order, pt tolerated well.
[2020-03-03] MEDS: AMOXICILLIN TRIHYDRATE 250 MG CAP PO SCH ×2 (05:32→14:07)
--- NOTE | 2020-03-03 06:58 | NUR ---
closing note pt resting in semi fowlers position with HOB at thirty degrees. no s/s of pain or distress. bed in low locked position, call light within reach.
--- NOTE | 2020-03-03 07:15 | NUR ---
OPENING SHIFT NOTE ASSUMED CARE OF PATIENT FROM DISTRICT COMMERCIAL SUPERINTENDENT JEANNETTE SINGER. PATIENT IS AWAKE, ALERT, AND ORIENTED X3 (PERSON, PLACE, AND SITUATION). REORIENTED PATIENT TO TIME. PATIENT HAS NO S/S OF DISTRESS/SOB OR PAIN. PATIENT IS REFUSING TO BE TURNED EVERY 2 HOURS IN ORDER TO AID IN WOUND HEALING, EDUCATED THE PATIENT ON WOUND HEALING AND THE IMPORTANCE OF TURNING, PATIENT VERBALIZED UNDERSTANDING AND IS STILL REFUSING. INSTRUCTED PATIENT ON POC, PATIENT VERBALIZED UNDERSTANDING. BED IS IN LOWEST POSITION WITH SIDE RAILS RAISED X2, BED WHEELS LOCKED, AND CALL LIGHT IS WITHIN REACH. WILL CONTINUE TO MONITOR.
[2020-03-03] MEDS: Ensure Enlive Strawberry 8oz Bottle PO SCH (07:30)
[2020-03-03 08:00] VITALS: BP 129/79
[2020-03-03 08:23] VITALS: BP 104/59
[2020-03-03] MEDS: CIPROFLOXACIN HCL 500 MG TAB PO SCH (09:41)
[2020-03-03] MEDS: ENOXAPARIN SOD 40 MG/0.4 ML SYRINGE SC SCH (09:41)
[2020-03-03] MEDS: FERROUS SULFATE 325 MG TAB PO SCH (09:41)
[2020-03-03] MEDS: FAMOTIDINE 20 MG TAB PO SCH (09:41)
[2020-03-03] MEDS: CHOLECALCIFEROL (VITD3) 2,000 UNIT CAP PO SCH (09:42)
[2020-03-03 12:32] VITALS: BP 110/72
--- NOTE | 2020-03-03 13:50 | NUR ---
Rec'd call back from Aundrea at [facility] ph# [phone] they will accept this patient, her room# 126 Bed [address] Carl and the report# [phone]. [facility] auth# [id number] and they will accept pt transfer [facility]
[2020-03-03 14:16] VITALS: BP 110/72
--- NOTE | 2020-03-03 14:32 | NUR ---
1430 03/03/20 - Patient placed on [facility] "will call" list.
--- NOTE | 2020-03-03 15:11 | NUR ---
D/C Planning Informed JEANNETTE LYNNE will transport patient to [facility] at 17:00 via gurney. [facility] is aware patient is (+)COVID. Provided JEANNETTE Bui with facility information.
--- NOTE | 2020-03-03 15:15 | NUR ---
ENDORSED CARE TO JEANNETTE BENNETT. [facility] CONSENTED IN TRANSFER. INFORMED DONALD IV AND TELE STILL NEED TO BE TAKEN OFF. PATIENT HAS NO S/S OF DISTRESS/SOB OR PAIN AT THIS TIME.
--- NOTE | 2020-03-03 16:26 | NUR ---
Attempted PT treatment. Pt was on the phone and requested to return later for treatment. Will attempt again.
[2020-03-03 16:38] VITALS: BP 109/71
--- NOTE | 2020-03-03 18:35 | NUR ---
REPORT GIVEN TO [facility] STAFF. TRANSPORTED VIA GURNEY NO SIGNS OF DISTRESS.
[2020-03-03] MEDS ORDERED: QUEtiapine FUMARATE 100 MG TAB PO SCH (22:00)
== END 2020-03-03 18:35 | DRG 177 ==
LOC: ER 10:34 → EDBD 10:34 → TELE-EAST 10:35 → EAST 02-25 14:19
PROVIDERS: ADMIT Internal Medicine; ATTEND Internal Medicine
DX: U07.1 COVID-19 (principal); L89.153 Pressure ulcer of sacral region, stage 3; E43 Unspecified severe protein-calorie malnutrition; N39.0 Urinary tract infection, site not specified; R62.7 Adult failure to thrive; Z51.5 Encounter for palliative care; D47.3 Essential (hemorrhagic) thrombocythemia; L89.329 Pressure ulcer of left buttock, unspecified stage; N31.9 Neuromuscular dysfunction of bladder, unspecified; F41.9 Anxiety disorder, unspecified; D50.9 Iron deficiency anemia, unspecified; F42.9 Obsessive-compulsive disorder, unspecified; Z93.3 Colostomy status
CPT/HCPCS: 36415; 36600; 71045; 80053; 81001; 82607; 82728; 82746; 82805; 83540; 83550; 83735; 84100; 84443; 85007; 85025; 85027; 86141; 87086; 87088; 87186; 87426; 94640; 94762; 96365; 96366; 96367; 97110; 97116; 97163; 97530; G0378; J0696; J1100; J7060

== ENCOUNTER 2020-05-23 11:00 | Inpatient (IN) | payer BC, OTHER ==
[~2020-05-23] VITALS: Ht 157.5 cm; Wt 54.3 kg
[~2020-05-23 11:00] MED LIST: ACET-1156 PO; ASCO10003 PO; ATOR20TA50 PO; BUSP15TA60 PO; CHOL1CAP47 PO; FER325T PO; LORA0.5T20 PO; NITR-87 PO; PANT1INJ3 PO; QUET200T44 PO
[2020-05-23 14:14] LABS: Basophils # (auto) 0 10 ^3/uL (0-0.2); Basophils % (auto) 0.1 % (0.0-2.0); Eosinophils # (auto) 0 10 ^3/uL (0-0.8)
[2020-05-23 14:16] LABS: Eosinophils % (auto) 0.1 % (0.0-7.0); Hematocrit 33.8 % (36.0-46.0); Hemoglobin 10.8 g/dL (12.2-16.2); Lymphocytes # (auto) 0.8 10 ^3/uL (0.4-5.4); Lymphocytes % (auto) 3.6 % (10.0-50.0); Mean Corpuscular Hemoglobin 26.1 pg (28.0-32.0); Mean Corpuscular Volume 81.6 fL (80.0-100.0); Monocytes # (auto) 1.8 10 ^3/uL (0-1.3); Monocytes % (auto) 7.9 % (0.0-12.0); Neutrophils # (auto) 19.6 10 ^3/uL (1.6-8.6); Neutrophils % (auto) 88.3 % (37.0-80.0); Platelet Count (auto) 427 10^3/uL (140-450); Red Blood Cells 4.14 10^6/uL (4.0-5.20); Red Cell Distribution Width 17.4 % (11.8-14.3); White Blood Cell 22.2 10^3/uL (4.4-10.8)
[2020-05-23 14:20] LABS: INR 1.03 (0.9-1.15); Partial Thromboplastin Time 21.9 sec (23.0-31.2)
[2020-05-23 14:52] LABS: Chloride 103 mmol/L (98-107); Potassium 3.8 mmol/L (3.5-5.1); Sodium 132 mmol/L (136-145)
[2020-05-23 14:53] LABS: Urine Bacteria MOD /hpf (None Seen); Urine Blood 2+ /uL (Negative); Urine Specific Gravity 1.016 (1.001-1.035); Urine WBC 2271 /hpf (0 - 5); Urine WBC Clumps PRESENT /hpf (None Seen)
[2020-05-23 15:06] LABS: Alanine Aminotransferase 11 U/L (13-56); Alkaline Phosphatase 76 U/L (45-117); Anion Gap 8 (5-15); Aspartate Aminotransferase 12 U/L (15-37); BUN/Creatinine Ratio 40.5; Bilirubin, Total 0.4 mg/dL (0.2-1.0); Blood Urea Nitrogen 45 mg/dL (7-18); Calcium 9.2 mg/dL (8.5-10.1); Carbon Dioxide 21 mmol/L (21-32); GFR African American 64 mL/min; GFR Non-African American 53 mL/min; Glucose 81 mg/dL (74-106); Total Protein 6.6 g/dL (6.4-8.2)
[2020-05-23] MEDS ORDERED: CLINDAMYCIN 600MG IV 50 ML IV ONE (15:15)
[2020-05-23] MEDS ORDERED: cefTRIAXone 1GM/50ML D5W 50 ML IV ONE (15:15)
[2020-05-23] MEDS ORDERED: ACETAMINOPHEN 325 MG TAB PO PRN (16:00)
[2020-05-23] MEDS ORDERED: NITROGLYCERIN 0.4 MG SL TAB SL PRN (16:00)
[2020-05-23] MEDS ORDERED: ALUM & MAG HYDROX-SIMETH LIQ(MAALOX) 30 ML PO PRN (16:00)
[2020-05-23] MEDS ORDERED: ONDANSETRON HCL 4 MG/2 ML VIAL IV PRN (16:00)
[2020-05-23] MEDS ORDERED: VANCOMYCIN PER PHARMACY 0 MG IV SCH (16:00)
[2020-05-23] MEDS ORDERED: MORPHINE SULF INJ 2 MG/ML SYRINGE 1ML IV PRN (16:00)
[2020-05-23] MEDS ORDERED: HYDROcodone-ACET 5/325MG TAB PO PRN (16:00)
[2020-05-23] MEDS ORDERED: DOCUSATE SOD 100 MG CAP PO PRN (16:00)
[2020-05-23] MEDS ORDERED: PIPERACILLIN-TAZOB 3.375GM 100 ML IV ONE (17:00)
[2020-05-23] MEDS: SODIUM CHLORIDE 0.9% 1,000 ML IV SCH (18:09)
[2020-05-23] MEDS ORDERED: VANCOMYCIN 750mg/250ml 250 ML IV ONE (20:00)
[2020-05-23 20:15] LABS: Cholesterol 134 mg/dL (< 200); HDL Cholesterol 39 mg/dL (40-59); LDL Cholesterol 72 mg/dL (< 100); Triglycerides 66 mg/dL (< 150)
[2020-05-23] MEDS ORDERED: busPIRone HCL 10 MG TAB PO SCH (21:00)
[2020-05-23] MEDS: LORazepam 0.5 MG TAB PO PRN (21:23)
[2020-05-23] MEDS: FAMOTIDINE (10MG/ML) 2ML VL IV SCH (22:25)
[2020-05-23] MEDS: QUEtiapine FUMARATE 100 MG TAB PO SCH (22:25)
[2020-05-24] MEDS: PIPERACILLIN-TAZOB 3.375GM 100 ML IV SCH ×4 (00:40→17:32)
[2020-05-24] MEDS ORDERED: SODIUM CHLORIDE 0.9% 1,000 ML IV ONE (05:30)
[2020-05-24 06:40] LABS: BUN/Creatinine Ratio 46.3; Calcium 7.7 mg/dL (8.5-10.1); Potassium 3.2 mmol/L (3.5-5.1)
[2020-05-24] MEDS ORDERED: ALBUMIN 5% 250 ML IV ONE (07:45)
[2020-05-24] MEDS: SODIUM CHLORIDE 0.9% 1,000 ML IV SCH (08:58)
[2020-05-24] MEDS: CHOLECALCIFEROL (VITD3) 2,000 UNIT CAP PO SCH (10:14)
[2020-05-24] MEDS: ENOXAPARIN SOD 40 MG/0.4 ML SYRINGE SC SCH (10:14)
[2020-05-24] MEDS: ATORVASTATIN 20 MG TAB PO SCH (10:16)
[2020-05-24] MEDS: ASCORBIC ACID 1,000 MG TAB PO SCH (10:16)
[2020-05-24] MEDS: FERROUS SULFATE 325 MG TAB PO SCH (10:18)
--- NOTE | 2020-05-24 14:57 | NUR ---
SPOKE TO ELI, THE PATIENT'S POA. ACCORDING TO ELI, THE PATIENT LIVES IN THE [facility] IN [place]. PER MCKENNA BENITEZ AT [facility] PHONE NUMBER IS [phone].
--- NOTE | 2020-05-24 16:31 | NUR ---
AIR MATTRESS: Air mattress ordered at [facility],[place] 05/24/20 , Reference# [id number]. Call [facility] at [phone] if needed to follow up. Addendum: 05/24/20 at 1632 by Phuong Bradford RN Amended: Links added.
[2020-05-24 17:00] VITALS: BP 103/57
--- NOTE | 2020-05-24 17:06 | NUR ---
WOUND CARE NOTE: Wound care in to see patient per wound care request regarding " pressure wound" that are noted on admission. Bedside nurse took photograph of patient's wounds/skin issue upon admission for reference. Patient is 59 years old female with admitting diagnosis of Sepsis. Patient is resting in bed in Rm. 279B. Patient is awake, alert and oriented. Patient is in no stated pain at this time and she appears to be in no pain using [place] Faces Pain Scale. She needs assistance in turning and repositioning and her Ok score is 11. Skin/wound assessment done with the assistance of patient's nurse, JEANNETTE Lane. Patient's Rt lateral nose bridge noted with 0.5x0.3cm dry scabbed wound with bright red surrounding skin which patient reported from her eye glasses, no drainage/odor noted,left open to air. Thin, dry brown intact scab also noted to her L lateral ankle with pink surrounding skin. Blanchable redness noted to her L lateral foot and heel. her back has scattered red rashes with dry skin. Her medial sacrum noted with [id number] open full thickness pressure injury. Undermining noted from 3:00-6:00 o'clock position. Wound bed is red with bright red periwound, minimal serosanguineous drainage noted, with mild odor noted. Sacral pressure injury is consistent with Stage 3 pressure injury. Patient's L lower buttock/upper thigh noted with 4.5x2.5x2cm open full thickness wound. Wound bed is dusky red with palpable bone,tiffany wound is dark red, moderate serosanguineous drainage noted, mild odor noted. Patient reported that she has had the pressure injuries since June. Cleansed sacral wound with wound cleanser, patted dry with gauze, applied Thera honey gel to wound bed area, fill wound cavity with one piece NS moistened 4x4 gauze and covered with Opti foam dressing. Patient's L posterior thigh wound cleansed with NS, took specimen for wound culture and sent to lab for processing. Applied Thera honey gel to wound bed area, fill wound cavity with one piece NS moistened 4x4 gauze and leave a tail, covered with Opti foam dressing. Tiffany care given, applied Z Guard cream to lower buttocks and thighs MASD. Repositioned patient for comfort , redistributed pressure points with pillows. Patient tolerated well. JEANNETTE aLne at bedside. RECOMMENDATION: Nursing to continue with Daily/PRN dressing change to sacral and L posterior thigh wounds ; BID/PRN cleaning and application of Z Guard cream to lower buttocks and thighs MASD per MD order, Dietary consult, frequent turning and repositioning schedule as condition permits, redistribute pressure points with pillows, air mattress (ordered), elevate heels on pillows, continue monitoring by wound care while patient is hospitalized. Addendum: 05/24/20 at 1808 by Phuong Bradford RN Amended: Links added.
[2020-05-24] MEDS ORDERED: POTASSIUM CHL 20 Meq TABLET PO ONE (17:15)
--- NOTE | 2020-05-24 18:45 | NUR ---
POSITIVE BLOOD CULTURES PER HEMATOLOGY POSITIVE CULTURES IN BOTH BOTTLES, GRAM POSITIVE COCCI IN CHAINS. PAGE TO HOSPITALIST FOR ORDERS.
--- NOTE | 2020-05-24 18:51 | NUR ---
TIA TERRELL CALL BACK NEW ORDERS ADDED FOR VANCO. CONTINUE CARE.
[2020-05-24] MEDS ORDERED: VANCOMYCIN PER PHARMACY 0 MG IV SCH (19:00)
[2020-05-24] MEDS: VANCOMYCIN 1GM/250ML 250 ML IV SCH (21:27)
[2020-05-24] MEDS: busPIRone HCL 10 MG TAB PO SCH (21:28)
[2020-05-24] MEDS: QUEtiapine FUMARATE 100 MG TAB PO SCH (21:29)
[2020-05-24] MEDS: FAMOTIDINE (10MG/ML) 2ML VL IV SCH (21:30)
[2020-05-24 22:00] VITALS: BP 111/70
[2020-05-25] MEDS: LORazepam 0.5 MG TAB PO PRN (03:56)
[2020-05-25 05:00] VITALS: BP 95/60
[2020-05-25] MEDS: PIPERACILLIN-TAZOB 3.375GM 100 ML IV SCH ×4 (05:47→18:20)
[2020-05-25 07:08] LABS: Basophils # (auto) 0 10 ^3/uL (0-0.2); Basophils % (auto) 0.4 % (0.0-2.0); Eosinophils # (auto) 0.4 10 ^3/uL (0-0.8); Eosinophils % (auto) 4.8 % (0.0-7.0); Hematocrit 26.7 % (36.0-46.0); Hemoglobin 8.7 g/dL (12.2-16.2); Lymphocytes # (auto) 0.7 10 ^3/uL (0.4-5.4); Lymphocytes % (auto) 8.8 % (10.0-50.0); Mean Corpuscular Hemoglobin 26.5 pg (28.0-32.0); Mean Corpuscular Hgb Conc. 32.5 g/dL (32.0-36.0); Mean Corpuscular Volume 81.8 fL (80.0-100.0); Monocytes # (auto) 0.9 10 ^3/uL (0-1.3); Monocytes % (auto) 10.6 % (0.0-12.0); Neutrophils # (auto) 6.2 10 ^3/uL (1.6-8.6); Neutrophils % (auto) 75.4 % (37.0-80.0); Platelet Count (auto) 357 10^3/uL (140-450); Red Blood Cells 3.26 10^6/uL (4.0-5.20); Red Cell Distribution Width 16.6 % (11.8-14.3); White Blood Cell 8.3 10^3/uL (4.4-10.8)
[2020-05-25 07:27] LABS: Potassium 3.8 mmol/L (3.5-5.1)
[2020-05-25 07:34] LABS: Albumin 1.8 g/dL (3.4-5.0); BUN/Creatinine Ratio 36.7; Bilirubin, Total 0.2 mg/dL (0.2-1.0); Calcium 8.1 mg/dL (8.5-10.1); Magnesium 1.8 mg/dL (1.6-2.6); Total Protein 5.8 g/dL (6.4-8.2)
--- NOTE | 2020-05-25 07:35 | NUR ---
Opening Shift Note Assumed care of patient, awake and alert. No S/S of distress/SOB or pain. Instructed on POC and to call for assist PRN, bed alarm on with bed in lowest position and locked with siderails up x3 will continue to monitor for changes Q1hr and PRN.
[2020-05-25] MEDS: FLUCONAZOLE 100 MG TAB PO SCH (09:44)
[2020-05-25] MEDS: busPIRone HCL 10 MG TAB PO SCH ×2 (09:44→20:30)
[2020-05-25] MEDS: ATORVASTATIN 20 MG TAB PO SCH (09:45)
[2020-05-25] MEDS: ENOXAPARIN SOD 40 MG/0.4 ML SYRINGE SC SCH (09:45)
[2020-05-25] MEDS: FERROUS SULFATE 325 MG TAB PO SCH (09:45)
[2020-05-25] MEDS: CHOLECALCIFEROL (VITD3) 2,000 UNIT CAP PO SCH (09:45)
[2020-05-25] MEDS: ASCORBIC ACID 1,000 MG TAB PO SCH (09:45)
--- NOTE | 2020-05-25 10:15 | NUR ---
ROUNDING MD Elodia RONQUILLO AT BEDSIDE. ALL QUESTIONS AND CONCERNS ADDRESSED AT THIS TIME. NEW ORDERS RECEIVED. RN WILL IMPLEMENT NEW ORDERS PER PROTOCAL
--- NOTE | 2020-05-25 11:14 | NUR ---
COLOSTOMY DRESSING CHANGE DRESSING CHANGED. STOMA IS BEEFY RED WITH PINK SKIN SURROUNDING STOMA. PATIENT TOLERATED DRESSING CHANGE WELL
[2020-05-25 13:00] VITALS: BP 121/72
[2020-05-25] MEDS: VANCOMYCIN 1GM/250ML 250 ML IV SCH (14:02)
--- NOTE | 2020-05-25 14:22 | NUR ---
WOUND CARE DRESSING CHANGE PERFORMED. PATIENT TOLERATED PROCEDURE WELL
--- NOTE | 2020-05-25 14:50 | NUR ---
Nutrition Assessment/Consult Notes Please refer to link for full assessment notes. Est Energy needs: 2009-4074 kcals (20-23 kcal/kgBW) Est Protein needs: 55-60 gms/day (1.0-1.1 gm/kgBW) Will continue to monitor and reassess prn. Addendum: 05/25/20 at [address] Amended: Links added.
[2020-05-25 16:35] VITALS: BP 109/60
--- NOTE | 2020-05-25 19:35 | NUR ---
Opening Shift Note Assumed care of patient, awake and alert x4. No S/S of distress/SOB or pain. Dressings to sacrum and left hip are C/D/I. Call light is within reach, fall precautions are in place. Instructed on POC and to call for assist PRN, will continue to monitor for changes Q1hr and PRN.
--- NOTE | 2020-05-25 21:10 | NUR ---
Laureano was leaking, checked the saline amount in Laureano and there was 6cc found. Adjusted laureano position and added 4cc more of saline to laureano to maintain position for a total of 10cc. Patient cleaned and new linens placed, repositioned for comfort and pillows placed under left hip and bilateral lower extremities. Call light is within reach, fall precautions are in place, will continue to monitor.
[2020-05-25 22:00] VITALS: BP 115/73
[2020-05-25] MEDS: FAMOTIDINE (10MG/ML) 2ML VL IV SCH (22:35)
[2020-05-25] MEDS: QUEtiapine FUMARATE 100 MG TAB PO SCH (22:35)
[2020-05-26] MEDS: PIPERACILLIN-TAZOB 3.375GM 100 ML IV SCH ×4 (00:14→18:00)
[2020-05-26 05:00] VITALS: BP 120/88
[2020-05-26] MEDS: VANCOMYCIN 1GM/250ML 250 ML IV SCH (05:00)
[2020-05-26 06:12] LABS: Potassium 3.5 mmol/L (3.5-5.1)
[2020-05-26 06:19] LABS: Albumin 1.9 g/dL (3.4-5.0); BUN/Creatinine Ratio 23.2; Bilirubin, Total 0.3 mg/dL (0.2-1.0)
--- NOTE | 2020-05-26 06:46 | NUR ---
[facility]
--- NOTE | 2020-05-26 06:50 | NUR ---
Hospitalist called back, instructed to call pharmacy and let them know the vanco trough.
--- NOTE | 2020-05-26 06:54 | NUR ---
Pharmacy stated to disregard Vanco trough since 0500 dose was given, will redraw Vanco trough at a later time today.
--- NOTE | 2020-05-26 07:40 | NUR ---
Opening Shift Note: Assumed care of patient, awake and alert x 3. No S/S of distress/SOB or pain. Bed in lowest locked position, side rails up x 2, call light within reach. Patient instructed on POC and to call for assist PRN, will continue to monitor for changes Q1hr and PRN.
[2020-05-26] MEDS: busPIRone HCL 10 MG TAB PO SCH (08:34)
[2020-05-26] MEDS: ATORVASTATIN 20 MG TAB PO SCH (08:34)
[2020-05-26] MEDS: FERROUS SULFATE 325 MG TAB PO SCH (08:34)
[2020-05-26] MEDS: CHOLECALCIFEROL (VITD3) 2,000 UNIT CAP PO SCH (08:35)
[2020-05-26] MEDS: ASCORBIC ACID 1,000 MG TAB PO SCH (08:35)
[2020-05-26] MEDS: ENOXAPARIN SOD 40 MG/0.4 ML SYRINGE SC SCH (08:36)
[2020-05-26 09:05] VITALS: BP 124/87
[2020-05-26 11:27] VITALS: BP 124/87
--- NOTE | 2020-05-26 12:00 | NUR ---
PERFORMED WOUND CARE AT THIS TIME PER MD ORDERS. PATIENT TOLERATED WELL. DISCHARGE WOUND PHOTOS OBTAINED.
--- NOTE | 2020-05-26 12:07 | NUR ---
PAGED PREANALYTICS TEAM LEAD SUPERVISOR WOUND AT THIS TIME. AWAITING CALL BACK.
--- NOTE | 2020-05-26 12:44 | NUR ---
PAGED STEAMBOAT INSPECTOR CABLE SYSTEMS INSTALLER AT THIS TIME.
[2020-05-26 13:00] VITALS: BP 122/85
[2020-05-26] MEDS: FLUCONAZOLE 100 MG TAB PO SCH (13:05)
--- NOTE | 2020-05-26 14:29 | NUR ---
TEACHER OF FAMILY AND CONSUMER SCIENCE SOCIAL WORKED PAGED AT THIS TIME.
--- NOTE | 2020-05-26 15:00 | NUR ---
PAGED SPECIMEN ACCESSIONER LOOM WINDER TENDER AT THIS TIME.
--- NOTE | 2020-05-26 15:10 | NUR ---
1430 05/26/20 - Faxed to [facility] at [phone] face sheet, order to resume [facility] H/[facility]. Contacted [facility] at [phone] spoke with nurse Roger who stated she would schedule transportation for patient and call me or the nurse's station with pickup time.
--- NOTE | 2020-05-26 16:20 | NUR ---
SPOKE WITH [facility]. ESTIMATED ALGEBRA TUTOR 1829. PATIENT UPDATED.
[2020-05-26 17:06] VITALS: BP 130/76
--- NOTE | 2020-05-26 17:11 | NUR ---
PATIENT INSISTED THAT TELE BOX AND IV BE REMOVED. IV removal: IV DC'd with clean sterile technique, catheter fully intact. Pressure dressing applied to site. Patient tolerated well.
--- NOTE | 2020-05-26 18:53 | NUR ---
CLOSING NOTE: PATIENT RESTING IN BED. NO S/S OF DISTRESS. PATIENT PENDING TRANSPORTATION
--- NOTE | 2020-05-26 19:30 | NUR ---
Opening Shift Note Assumed care of patient, awake and alert x4. No S/S of distress/SOB or pain. Awaiting transport for discharge home on hospice to [facility]. Instructed on POC and to call for assist PRN, will continue to monitor for changes Q1hr and PRN.
--- NOTE | 2020-05-26 19:50 | NUR ---
1225 cc of yellow hazy urine emptied from Capellan bag.
--- NOTE | 2020-05-26 19:56 | NUR ---
Discharge instructions given as ordered. Encourage to follow up with PMD as instructed. All questions and concerns addressed. Patient verbalized understanding. Medication reconciliation form completed and copy given to patient. IV removed with catheter intact, pressure dressing applied, laureano catheter removed. Telemetry unit returned to ICU. Patient taken to vehicle via GURNEY with all personal belongings, accompanied by transport team. Patient is going home on hospice to [facility]. No distress noted at time of departure.
== END 2020-05-26 19:55 | disposition hospice, home (50) | DRG 871 ==
LOC: ER 11:00 → EDBD 11:00 → EDUNIT# 11:00 → TELE 15:52 → TELE-WESTW 05-24 14:22
PROVIDERS: ADMIT Hospitalist; ATTEND Internal Medicine
DX: A41.9 Sepsis, unspecified organism (principal); L89.154 Pressure ulcer of sacral region, stage 4; L89.324 Pressure ulcer of left buttock, stage 4; R53.2 Functional quadriplegia; M86.9 Osteomyelitis, unspecified; N39.0 Urinary tract infection, site not specified; N17.9 Acute kidney failure, unspecified; E44.0 Moderate protein-calorie malnutrition; R65.20 Severe sepsis without septic shock; D64.9 Anemia, unspecified; Z20.828 Contact with and (suspected) exposure to other viral communicable diseases; N31.2 Flaccid neuropathic bladder, not elsewhere classified; F41.9 Anxiety disorder, unspecified; K21.9 Gastro-esophageal reflux disease without esophagitis; F03.90 Unspecified dementia, unspecified severity, without behavioral disturbance, psychotic disturbance, mood disturbance, and anxiety; L98.419 Non-pressure chronic ulcer of buttock with unspecified severity; N18.9 Chronic kidney disease, unspecified; Z74.01 Bed confinement status; Z68.21 Body mass index [BMI] 21.0-21.9, adult; Z93.3 Colostomy status
CPT/HCPCS: 36415; 70450; 71045; 72192; 80048; 80053; 80061; 80202; 81001; 83036; 83605; 83735; 83880; 84484; 85025; 85610; 85730; 87040; 87077; 87081; 87086; 87186; 87205; 87426; 96365; 96366; 96367; 96368; G0378; J0696; J2543; J3490

== ENCOUNTER 2020-05-28 12:14 | Inpatient (IN) | payer BC ==
[~2020-05-28] VITALS: Ht 162.6 cm; Wt 61.9 kg
[2020-05-28 18:38] LABS: Basophils # (auto) 0.1 10 ^3/uL (0-0.2); Eosinophils # (auto) 0 10 ^3/uL (0-0.8); Hemoglobin 10.7 g/dL (12.2-16.2); Lymphocytes # (auto) 1.9 10 ^3/uL (0.4-5.4); White Blood Cell 24.4 10^3/uL (4.4-10.8)
[2020-05-28 18:39] LABS: Basophils % (auto) 0.3 % (0.0-2.0); Hematocrit 33.7 % (36.0-46.0); Lymphocytes % (auto) 7.9 % (10.0-50.0); Mean Corpuscular Hemoglobin 25.9 pg (28.0-32.0); Mean Corpuscular Hgb Conc. 31.7 g/dL (32.0-36.0); Mean Corpuscular Volume 81.6 fL (80.0-100.0); Monocytes # (auto) 2.1 10 ^3/uL (0-1.3); Monocytes % (auto) 8.7 % (0.0-12.0); Neutrophils # (auto) 20.2 10 ^3/uL (1.6-8.6); Neutrophils % (auto) 83.1 % (37.0-80.0); Platelet Count (auto) 585 10^3/uL (140-450); Red Blood Cells 4.12 10^6/uL (4.0-5.20); Red Cell Distribution Width 16.8 % (11.8-14.3)
[2020-05-28 18:57] LABS: Urine Bacteria NONE SEEN /hpf (None Seen); Urine Blood 1+ /uL (Negative); Urine Mucus FEW (None Seen); Urine Specific Gravity 1.013 (1.001-1.035); Urine WBC 193 /hpf (0 - 5); Urine WBC Clumps PRESENT /hpf (None Seen)
[2020-05-28] MEDS ORDERED: metroNIDAZOLE 500MG/100ML 100 ML IV ONE (19:00)
[2020-05-28] MEDS ORDERED: PIPERACILLIN-TAZOB 3.375GM 100 ML IV ONE (19:00)
[2020-05-28 19:07] LABS: Alanine Aminotransferase 32 U/L (13-56); Albumin 2.3 g/dL (3.4-5.0); Amylase 90 U/L (25-115); Anion Gap 10 (5-15); Aspartate Aminotransferase 23 U/L (15-37); BUN/Creatinine Ratio 41.8; Bilirubin, Total 0.5 mg/dL (0.2-1.0); Blood Urea Nitrogen 59 mg/dL (7-18); Calcium 8.5 mg/dL (8.5-10.1); Carbon Dioxide 28 mmol/L (21-32); Chloride 100 mmol/L (98-107); GFR African American 49 mL/min; GFR Non-African American 40 mL/min; Glucose 113 mg/dL (74-106); Lipase 145 U/L (73-393); Potassium 3.8 mmol/L (3.5-5.1); Sodium 138 mmol/L (136-145)
[2020-05-28 19:12] LABS: Alkaline Phosphatase 76 U/L (45-117); Total Protein 6.8 g/dL (6.4-8.2)
[2020-05-28 19:12] LABS: INR 1.13 (0.9-1.15); Partial Thromboplastin Time 25.8 sec (23.0-31.2)
[2020-05-28] MEDS ORDERED: VANCOMYCIN PER PHARMACY 0 MG IV SCH (20:45)
[2020-05-28] MEDS ORDERED: DOCUSATE SOD 100 MG CAP PO PRN (20:45)
[2020-05-28] MEDS ORDERED: ONDANSETRON HCL 4 MG/2 ML VIAL IV PRN (20:45)
[2020-05-28] MEDS ORDERED: ACETAMINOPHEN 325 MG TAB PO PRN (20:45)
[2020-05-28] MEDS ORDERED: HYDROcodone-ACET 5/325MG TAB PO PRN (20:45)
[2020-05-28] MEDS: SODIUM CHLORIDE 0.9% 1,000 ML IV SCH (21:13)
[2020-05-28] MEDS ORDERED: VANCOMYCIN 1GM/250ML 250 ML IV ONE (22:00)
[2020-05-29] MEDS: PIPERACILLIN-TAZOB 3.375GM 100 ML IV SCH ×3 (05:48→21:41)
[2020-05-29] MEDS: MORPHINE SULF INJ 2 MG/ML SYRINGE 1ML IV PRN (06:33)
[2020-05-29] MEDS: SODIUM CHLORIDE 0.9% 1,000 ML IV SCH ×2 (06:45→16:45)
[2020-05-29 07:13] LABS: Eosinophils # (auto) 0 10 ^3/uL (0-0.8); Hematocrit 32.3 % (36.0-46.0); Hemoglobin 10.6 g/dL (12.2-16.2); Neutrophils % (auto) 84.3 % (37.0-80.0); Red Blood Cells 4.03 10^6/uL (4.0-5.20); Red Cell Distribution Width 17.1 % (11.8-14.3)
[2020-05-29 07:17] LABS: Basophils # (auto) 0.1 10 ^3/uL (0-0.2); Basophils % (auto) 0.3 % (0.0-2.0); Lymphocytes # (auto) 1.5 10 ^3/uL (0.4-5.4); Lymphocytes % (auto) 7.3 % (10.0-50.0); Mean Corpuscular Hemoglobin 26.3 pg (28.0-32.0); Mean Corpuscular Hgb Conc. 32.9 g/dL (32.0-36.0); Mean Corpuscular Volume 80.1 fL (80.0-100.0); Monocytes # (auto) 1.6 10 ^3/uL (0-1.3); Monocytes % (auto) 8.1 % (0.0-12.0); Neutrophils # (auto) 16.9 10 ^3/uL (1.6-8.6); Nucleated Red Blood Cells % 0.1 %; Platelet Count (auto) 582 10^3/uL (140-450); White Blood Cell 20.1 10^3/uL (4.4-10.8)
[2020-05-29 07:37] LABS: BUN/Creatinine Ratio 42.9; Calcium 8.7 mg/dL (8.5-10.1)
[2020-05-29 07:45] LABS: Potassium 2.8 mmol/L (3.5-5.1)
[2020-05-29] MEDS ORDERED: POTASSIUM CHLORIDE 60 MEQ, LIDOCAINE 1% (LOCAL ANESTH.) 6 ML in SODIUM CHL 0.9% 500 ML IV ONE (09:15)
[2020-05-29] MEDS ORDERED: VANCOMYCIN 750mg/250ml 250 ML IV SCH (10:00)
[2020-05-29] MEDS ORDERED: LINEZOLID 600MG/300ML 300 ML IV ONE (12:15)
[2020-05-29] MEDS ORDERED: GASTROGRAFIN 120 ML SOL ONE (12:23)
[2020-05-29] MEDS ORDERED: POTASSIUM CHL 20 Meq TABLET PO ONE (15:30)
[2020-05-29] MEDS ORDERED: FLUCONAZOLE 200MG/100ML 100 ML IV ONE (16:45)
[2020-05-29] MEDS ORDERED: POTASSIUM EFFERVESENT TAB 25 MEQ GT ONE (17:00)
[2020-05-29] MEDS: LINEZOLID 600MG/300ML 300 ML IV SCH (21:41)
--- NOTE | 2020-05-29 23:45 | NUR ---
Telemetry admit from ER EDDIERASHI admitted to Telemetry unit after SBAR received. Patient oriented to Joy Angeles primary RN, unit, room, bed, and unit policies regarding patient care and visiting hours. Patient now on continuous telemetry monitoring, tele box # 79 and telemetry reading on arrival to unit is sinus tachycardia at 104. Patient placed on bedside oxygen, weighed by bedscale and encouraged to call if they need something. NGT on L nares connected to LIS. Capellan catheter patent and draining light tee urine. All questions and concerns addressed, patient verbalized understanding.
[2020-05-30] VITALS (7 sets, daily range): BP systolic 105–122; BP diastolic 69–87
[2020-05-30] MEDS: SODIUM CHLORIDE 0.9% 1,000 ML IV SCH ×3 (03:00→23:50)
[2020-05-30] MEDS: PIPERACILLIN-TAZOB 3.375GM 100 ML IV SCH ×3 (05:45→21:43)
[2020-05-30 07:15] LABS: Eosinophils # (auto) 0 10 ^3/uL (0-0.8); Lymphocytes # (auto) 1.1 10 ^3/uL (0.4-5.4); Monocytes # (auto) 0.8 10 ^3/uL (0-1.3)
[2020-05-30 07:18] LABS: Basophils # (auto) 0.1 10 ^3/uL (0-0.2); Basophils % (auto) 0.7 % (0.0-2.0); Eosinophils % (auto) 0.2 % (0.0-7.0); Hematocrit 27.8 % (36.0-46.0); Hemoglobin 8.8 g/dL (12.2-16.2); Lymphocytes % (auto) 8.4 % (10.0-50.0); Mean Corpuscular Hgb Conc. 31.8 g/dL (32.0-36.0); Mean Corpuscular Volume 81.7 fL (80.0-100.0); Monocytes % (auto) 6.1 % (0.0-12.0); Neutrophils # (auto) 11.5 10 ^3/uL (1.6-8.6); Neutrophils % (auto) 84.6 % (37.0-80.0); Platelet Count (auto) 498 10^3/uL (140-450); Red Blood Cells 3.41 10^6/uL (4.0-5.20); Red Cell Distribution Width 17.2 % (11.8-14.3); White Blood Cell 13.6 10^3/uL (4.4-10.8)
--- NOTE | 2020-05-30 07:20 | NUR ---
NGT output is 210 of greenish fluid. Patient awake at this time. Bed in lowest position, side rails up x2, bed alarm on, call light in reach. Endorsed care to dayshift RN.
--- NOTE | 2020-05-30 07:33 | NUR ---
AIR MATTRESS: Air mattress ordered at [facility],[place] 05/30/20 @ 1325 , Reference# [id number]. Call [facility] at [phone] if needed to follow up. Addendum: 05/30/20 at 0734 by Phuong Bradford RN Amended: Links added.
[2020-05-30 07:38] LABS: Albumin 2.1 g/dL (3.4-5.0); Potassium 3.6 mmol/L (3.5-5.1)
[2020-05-30 07:42] LABS: BUN/Creatinine Ratio 50.5; Bilirubin, Total 0.3 mg/dL (0.2-1.0)
--- NOTE | 2020-05-30 08:00 | NUR ---
Opening Shift Note Assumed care of patient, pt is awake, A&OX3, presents periods of confusion. No S/S of distress/SOB or pain. Instructed on POC and to call for assist PRN, and call light within reach. Bed is locked, in lowest position, and side rails upX2. Will continue to monitor for changes Q1hr and PRN.
[2020-05-30] MEDS ORDERED: MORPHINE SULF INJ 2 MG/ML SYRINGE 1ML ONE (08:56)
[2020-05-30] MEDS: FLUCONAZOLE 200MG/100ML 100 ML IV SCH (09:08)
[2020-05-30] MEDS: LINEZOLID 600MG/300ML 300 ML IV SCH ×2 (09:09→21:43)
[2020-05-30] MEDS: MORPHINE SULF INJ 2 MG/ML SYRINGE 1ML IV PRN (09:10)
--- NOTE | 2020-05-30 09:54 | NUR ---
Dr. Baker at unit, doctor informed that pt's POA wants to speak with doctor, doctor called pt's POA Brittney at [phone] and had a lengthy discussion regarding plan of care and multiple treatment options as per doctor.
[2020-05-30] MEDS ORDERED: GASTROGRAFIN 120 ML SOL ONE (10:26)
--- NOTE | 2020-05-30 10:32 | NUR ---
WOUND CARE NOTE: Wound care in to see patient per wound care request regarding pressure injuries that are noted on admission. Bedside nurse took photograph of patient's wounds upon admission for reference. Patient is 59 years old female with admitting diagnosis of Acute Abdominal Pain, Recurrent/Combined UTI. Patient is resting in bed in Rm. 279B. Patient is awake but not responding to questions. Patient appears to be in no pain using [place] Faces Pain Scale. She needs assistance in turning and repositioning and her Ok score is 12. Skin/wound assessment done with the assistance of another nurse, JEANNETTE Connell. Patient's medial sacrum noted with open full thickness pressure injury measuring 7x12x0.8cm. Undermining noted from 10:00-1:00 o'clock position with deepest of 2.5cmundermining noted at 11:00 o'clock position. Wound bed is red with pink and bright red periwound, minimal serous drainage noted, no odor noted. Sacral pressure injury is consistent with Stage 3 pressure injury. Patient's L lower buttock/upper thigh noted with open full thickness wound measuring 4.5x 3 x2cm Wound bed is dusky red with palpable bone,jennifer wound is pale pink with dark red/purple area, moderate serous drainage noted, no odor noted. Patient's L lower buttock wound is consistent with Stage 4 pressure injury. Cleansed patient's wounds with wound cleanser, patted dry with gauze, applied Thera honey gel to wound bed area, fill wound cavity with one piece NS moistened gauze starting to undermined area and covered wounds with Opti foam sacral/gentle dressing. Patient's bilateral heel has intact skin with blanchable redness. Repositioned patient for comfort facing her Rt side, redistributed pressure points with pillows. Patient tolerated well. Bed in low position,call erickson within reach, bed alarm on. RECOMMENDATION: Nursing to continue with Daily/PRN dressing change to sacral and L posterior thigh wounds per MD order, Dietary consult, Dietary consult for wounds, frequent turning and repositioning schedule as condition permits, redistribute pressure points with pillows, air mattress (ordered), elevate heels on pillows, continue monitoring by wound care while patient is hospitalized. Addendum: 05/30/20 at 1527 by Phuong Bradford RN Amended: Links added.
--- NOTE | 2020-05-30 10:44 | NUR ---
Received a call from pt's POA Brittney to inform doctor the plan of care for pt, REGULO requested for pt to be transfer to [facility] for higher level of care. Dr. Baker informed, orders received for medical social consultant.
--- NOTE | 2020-05-30 11:30 | NUR ---
Pt take to radiology for the small bowel series.
--- NOTE | 2020-05-30 13:21 | NUR ---
I called [facility] Transfer Center [phone] and left message regarding order to transfer to higher level of care-I provided contact information for Dr. Baker as well as the nurse's station. I faxed requested face sheet to [phone].
--- NOTE | 2020-05-30 13:34 | NUR ---
I called [facility] ([phone]) and spoke with Fernanda, placed patient on will-call pending transfer to higher level of care.
--- NOTE | 2020-05-30 15:20 | NUR ---
Called and spoke to Dr. Baker, doctor informed regarding pt having positive MRSA in the nares. No orders received.
--- NOTE | 2020-05-30 15:34 | NUR ---
Opening Shift Note Assumed care of patient, awake but confused, alert to self and situation only. Bed is in lowest position and locked. Call light within reach. Board updated. Tele box number matches monitor and leads are in correct placement. No S/S of distress/SOB or pain. Instructed on POC and to call for assist PRN, will continue to monitor for changes Q1hr and PRN. Addendum: 05/31/20 at 2342 by TAMY JUDGE RN Wrong time. Disregard
--- NOTE | 2020-05-30 19:15 | NUR ---
Opening Shift Note Received report from Christie MACHADO. Assumed care of patient, awake and alert. No S/S of distress/SOB or pain. NGT clamped, awaiting for small bowel series follow up exam. Instructed on POC and to call for assist PRN. Fall precaution measures in place. Will continue to monitor for changes Q1hr and PRN.
--- NOTE | 2020-05-30 20:32 | NUR ---
Per aircraft ordnance technician the follow up exam for the small bowel series will be done tomorrow morning.
[2020-05-31 04:49] VITALS: BP 115/81
--- NOTE | 2020-05-31 06:00 | NUR ---
Wound care done. Drained moderate amount of soft brown stool from colostomy. Repositioned patient for comfort. Continue care.
[2020-05-31] MEDS: PIPERACILLIN-TAZOB 3.375GM 100 ML IV SCH ×3 (06:22→21:34)
[2020-05-31 06:40] LABS: Basophils # (auto) 0 10 ^3/uL (0-0.2); Basophils % (auto) 0.1 % (0.0-2.0); Eosinophils # (auto) 0.1 10 ^3/uL (0-0.8)
[2020-05-31 06:43] LABS: Eosinophils % (auto) 0.3 % (0.0-7.0); Hematocrit 28.2 % (36.0-46.0); Lymphocytes # (auto) 1.1 10 ^3/uL (0.4-5.4); Mean Corpuscular Hemoglobin 26.4 pg (28.0-32.0); Mean Corpuscular Hgb Conc. 31.9 g/dL (32.0-36.0); Mean Corpuscular Volume 82.8 fL (80.0-100.0); Monocytes # (auto) 0.9 10 ^3/uL (0-1.3); Monocytes % (auto) 5.4 % (0.0-12.0); Neutrophils # (auto) 14.1 10 ^3/uL (1.6-8.6); Neutrophils % (auto) 87.2 % (37.0-80.0); Nucleated Red Blood Cells % 0.1 %; Platelet Count (auto) 531 10^3/uL (140-450); Red Cell Distribution Width 17.2 % (11.8-14.3); White Blood Cell 16.2 10^3/uL (4.4-10.8)
[2020-05-31 07:09] LABS: Potassium 3.4 mmol/L (3.5-5.1)
--- NOTE | 2020-05-31 07:20 | NUR ---
Opening Shift Note Assumed care of patient, awake AOx3. No S/S of distress/SOB or no complaints of pain. NGT clamped, awaiting for small bowel series follow up exam. Instructed on POC and to call for assist PRN. Fall precaution measures in place. Will continue to monitor for changes Q1hr and PRN.
[2020-05-31 07:21] LABS: Albumin 2.2 g/dL (3.4-5.0); BUN/Creatinine Ratio 38.3; Bilirubin, Total 0.3 mg/dL (0.2-1.0); Calcium 8.2 mg/dL (8.5-10.1); Magnesium 2.4 mg/dL (1.6-2.6); Total Protein 6.1 g/dL (6.4-8.2)
[2020-05-31 08:49] VITALS: BP 108/80
--- NOTE | 2020-05-31 08:56 | NUR ---
X-ray at bedside for KUB.
[2020-05-31] MEDS: LINEZOLID 600MG/300ML 300 ML IV SCH ×2 (09:26→21:34)
[2020-05-31] MEDS: FLUCONAZOLE 200MG/100ML 100 ML IV SCH (09:37)
[2020-05-31] MEDS: SODIUM CHLORIDE 0.9% 1,000 ML IV SCH ×2 (09:41→19:08)
--- NOTE | 2020-05-31 09:55 | NUR ---
Spoke with REGULO Lugo, updated on POC.
--- NOTE | 2020-05-31 10:09 | NUR ---
I spoke with Thersea at [facility] [phone]-provided her with additional clinical information as requested-faxed clinical packet per request. She will give me a call back to let me know if they are able to accept this patient.
--- NOTE | 2020-05-31 10:14 | NUR ---
Doctor at bedside Dr. Baker at bedside, updated on POC. No new orders received. Will continue to monitor.
--- NOTE | 2020-05-31 10:20 | NUR ---
Dr. Baker stated spoke to Dr. Knight to transfer to higher level of care.
--- NOTE | 2020-05-31 11:16 | NUR ---
Doctor at bedside Dr. Knight at bedside, updated on POC. Patient to transfer to higher level of care.
[2020-05-31 12:49] VITALS: BP 121/86
--- NOTE | 2020-05-31 13:01 | NUR ---
Called POA Spoke with Brittney about POC and transferring to higher level of care. visitor services specialist is in contact with [facility] to transfer, will continue to follow up.
--- NOTE | 2020-05-31 13:20 | NUR ---
Paged Dr. Baker, awaiting call back.
--- NOTE | 2020-05-31 14:42 | NUR ---
Nutrition Assessment Notes Please refer to link for full assessment notes. Est Energy needs: 3464-1894 kcals (20-23 kcal/kgBW) Est Protein needs: 57-62 gms/day (1.0-1.1 gm/kgBW) Will continue to monitor and reassess prn. Addendum: 05/31/20 at [address] Amended: Links added.
--- NOTE | 2020-05-31 15:03 | NUR ---
I called [facility] and spoke with Theresa to ask for an update on the status of this transfer request-she is going to give me a call right back.
--- NOTE | 2020-05-31 15:26 | NUR ---
I received a call from Theresa at [facility] asking me to re-fax clinical information (faxed earlier today-confirmation received that fax went through). Theresa will await the fax and give me a call back.
--- NOTE | 2020-05-31 15:38 | NUR ---
Opening Shift Note Assumed care of patient, awake but confused, alert to self and situation only. Bed is in lowest position and locked. Call light within reach. Board updated. Tele box number matches monitor and leads are in correct placement. No S/S of distress/SOB or pain. Instructed on POC and to call for assist PRN, will continue to monitor for changes Q1hr and PRN.
--- NOTE | 2020-05-31 16:17 | NUR ---
I called [facility] Transfer Center [phone] to ask for an update on the status of the transfer-no answer, unable to leave a message, I was left on hold for several minutes. I called [facility] and spoke with Garcia, they remain on will-call pending transfer to higher level of care.
[2020-05-31 16:49] VITALS: BP 122/75
[2020-05-31 22:00] VITALS: BP 120/83
--- NOTE | 2020-05-31 22:24 | NUR ---
Changed colostomy bag. Site is moist and red, with no signs of irritation or breakdown.
--- NOTE | 2020-06-01 00:35 | NUR ---
Spoke to MD Baker and asked if a COVID roxie and in-house test should be performed if patient is expected to be transferred to [facility] but, per MD, patient was denied and will not be transferred.
[2020-06-01] MEDS: SODIUM CHLORIDE 0.9% 1,000 ML IV SCH ×2 (04:45→14:32)
[2020-06-01] MEDS: PIPERACILLIN-TAZOB 3.375GM 100 ML IV SCH ×3 (05:06→21:22)
[2020-06-01 05:30] VITALS: BP 107/73
[2020-06-01 06:09] LABS: Basophils # (auto) 0 10 ^3/uL (0-0.2); Basophils % (auto) 0.1 % (0.0-2.0); Eosinophils # (auto) 0.1 10 ^3/uL (0-0.8); Lymphocytes # (auto) 1.3 10 ^3/uL (0.4-5.4); Monocytes # (auto) 0.7 10 ^3/uL (0-1.3); Neutrophils # (auto) 13.5 10 ^3/uL (1.6-8.6); White Blood Cell 15.6 10^3/uL (4.4-10.8)
[2020-06-01 06:11] LABS: Eosinophils % (auto) 0.6 % (0.0-7.0); Hemoglobin 8.5 g/dL (12.2-16.2); Lymphocytes % (auto) 8.2 % (10.0-50.0); Mean Corpuscular Hemoglobin 26.5 pg (28.0-32.0); Mean Corpuscular Hgb Conc. 31.6 g/dL (32.0-36.0); Mean Corpuscular Volume 83.8 fL (80.0-100.0); Monocytes % (auto) 4.3 % (0.0-12.0); Neutrophils % (auto) 86.8 % (37.0-80.0); Platelet Count (auto) 496 10^3/uL (140-450); Red Blood Cells 3.23 10^6/uL (4.0-5.20); Red Cell Distribution Width 17.4 % (11.8-14.3)
[2020-06-01 06:35] LABS: Albumin 1.9 g/dL (3.4-5.0); BUN/Creatinine Ratio 35.2; Bilirubin, Total 0.4 mg/dL (0.2-1.0); Calcium 7.8 mg/dL (8.5-10.1); Total Protein 5.6 g/dL (6.4-8.2)
[2020-06-01 06:37] LABS: Potassium 2.7 mmol/L (3.5-5.1)
--- NOTE | 2020-06-01 06:42 | NUR ---
Paged MD Baker to notify him of critical potassium level of 2.7 mEq. Awaiting hang back.
--- NOTE | 2020-06-01 07:41 | NUR ---
Dr. Baker at bedside, received new order, noted and carried it out.
[2020-06-01] MEDS ORDERED: SOD CHL 0.9%/ KCL 40MEQ 1,000 ML IV SCH (08:00)
[2020-06-01 09:00] VITALS: BP 134/74
[2020-06-01] MEDS: POTASSIUM CHL 20MEQ/100ML 100 ML IV SCH ×4 (09:22→11:49)
--- NOTE | 2020-06-01 11:14 | NUR ---
Dr. Knight at bedside received new orders to DC NG and patient can have clear liquid diet.
--- NOTE | 2020-06-01 11:16 | NUR ---
NGT removal NGT removed per MD/BORDER MEASURER AND CUTTER order following explaination and instruction to patient. Patient verbalized understanding prior to removal. Patient tolerated well.
[2020-06-01] MEDS: FLUCONAZOLE 200MG/100ML 100 ML IV SCH (11:31)
[2020-06-01] MEDS: LINEZOLID 600MG/300ML 300 ML IV SCH ×2 (12:05→21:23)
[2020-06-01 13:00] VITALS: BP 116/78
--- NOTE | 2020-06-01 14:00 | NUR ---
Colostomy changed and wound dressing changed per MD order.
[2020-06-01] MEDS: D5W/SOD CHL 0.9%/KCL 40MEQ 1,000 ML IV SCH (14:31)
[2020-06-01 16:37] VITALS: BP 139/89
--- NOTE | 2020-06-01 19:00 | NUR ---
Opening Shift Note Assumed care of patient, awake and alert. No S/S of distress/SOB or pain. Instructed on POC and to call for assist PRN, will continue to monitor for changes Q1hr and PRN. Patient in the lowest possible position with call light within reach. Will continue to monitor.
[2020-06-01 20:00] VITALS: BP 133/83
--- NOTE | 2020-06-01 22:43 | NUR ---
Colostomy bag emptied. Patient clean.
[2020-06-01 23:24] VITALS: BP 133/83
[2020-06-02] MEDS: SODIUM CHLORIDE 0.9% 1,000 ML IV SCH ×3 (00:45→20:45)
[2020-06-02] MEDS: D5W/SOD CHL 0.9%/KCL 40MEQ 1,000 ML IV SCH ×2 (01:05→17:04)
[2020-06-02 05:00] VITALS: BP 129/79
[2020-06-02] MEDS: PIPERACILLIN-TAZOB 3.375GM 100 ML IV SCH ×3 (05:10→22:30)
[2020-06-02 07:21] LABS: Basophils # (auto) 0 10 ^3/uL (0-0.2); Eosinophils # (auto) 0.3 10 ^3/uL (0-0.8)
[2020-06-02 07:23] LABS: Basophils % (auto) 0.2 % (0.0-2.0); Eosinophils % (auto) 1.9 % (0.0-7.0); Hematocrit 27.7 % (36.0-46.0); Hemoglobin 8.7 g/dL (12.2-16.2); Lymphocytes # (auto) 1.4 10 ^3/uL (0.4-5.4); Lymphocytes % (auto) 9.1 % (10.0-50.0); Mean Corpuscular Hemoglobin 26.5 pg (28.0-32.0); Mean Corpuscular Hgb Conc. 31.3 g/dL (32.0-36.0); Mean Corpuscular Volume 84.6 fL (80.0-100.0); Monocytes # (auto) 0.7 10 ^3/uL (0-1.3); Monocytes % (auto) 4.2 % (0.0-12.0); Neutrophils # (auto) 13.2 10 ^3/uL (1.6-8.6); Neutrophils % (auto) 84.6 % (37.0-80.0); Platelet Count (auto) 453 10^3/uL (140-450); Red Blood Cells 3.28 10^6/uL (4.0-5.20); Red Cell Distribution Width 17.1 % (11.8-14.3); White Blood Cell 15.5 10^3/uL (4.4-10.8)
[2020-06-02 07:40] LABS: Calcium 7.2 mg/dL (8.5-10.1); Potassium 3.1 mmol/L (3.5-5.1)
[2020-06-02 07:44] LABS: BUN/Creatinine Ratio 25.8
[2020-06-02] MEDS ORDERED: POTASSIUM CHLORIDE 60 MEQ, LIDOCAINE 1% (LOCAL ANESTH.) 6 ML in SODIUM CHL 0.9% 500 ML IV ONE (08:15)
[2020-06-02] MEDS ORDERED: POTASSIUM EFFERVESENT TAB 25 MEQ PO ONE (08:15)
[2020-06-02] MEDS: FLUCONAZOLE 200MG/100ML 100 ML IV SCH (08:53)
[2020-06-02 09:00] VITALS: BP 127/80
[2020-06-02] MEDS: LINEZOLID 600MG/300ML 300 ML IV SCH ×2 (10:14→22:30)
--- NOTE | 2020-06-02 11:58 | NUR ---
Dressing changed all wounds per MD orders.
[2020-06-02 13:00] VITALS: BP 142/95
--- NOTE | 2020-06-02 14:05 | NUR ---
Nutrition Followup Notes Wt: 56.4 kg Pt was awake and oriented when rounded this am. per records pt with resolving SBO. per pt did have some of CLD. pt is currently on clear liq diet with no PO recorded yet Est Energy needs: 4930-7322 kcals (20-23 kcal/kgBW), Est Protein needs: 57-62 gms/day (1.0-1.1 gm/kgBW). Will continue to monitor and reassess prn. LABS: CA 7.2 L ALB 1.9 L GI: Pt had 200 ml BM 05/30 per RN doc BS: 13 mod risk. Refer to wound assessment report for further details. PES: 1) Increased nutrient needs aeb pt is currently NPO r/t pt with no PO intake Altered nutrition related lab values aeb hypokalemia, elev RFTs, hypocalcemia, hypoalbuminemia r/t current/chronic medical condition Comments: Will continue to monitor PO status, skin status, pertinent labs and weight trends. Will f/u in 2-3 days Rec:1) 1) Gradually advance pt diet when medically feasible, as tolerated and per MD approval. 2) If albumin continues trending down with improved RFTs consider Prostat 1 pkt BID. 3) Continue current plan of care
[2020-06-02 17:20] VITALS: BP 131/87
--- NOTE | 2020-06-02 19:15 | NUR ---
Opening Shift Note Patient AOx2-3. Patient knows name and time and frequently asks the same questions. Patient needs to be reoriented to surroundings and situation. Patient bed locked in lowest position and HOB at 45 degrees. No s/s of distress or SOB. Patient call light is within reach. Will continue to monitor.
[2020-06-03] MEDS: D5W/SOD CHL 0.9%/KCL 40MEQ 1,000 ML IV SCH ×2 (03:45→17:05)
[2020-06-03] MEDS: PIPERACILLIN-TAZOB 3.375GM 100 ML IV SCH ×3 (05:42→21:44)
[2020-06-03 08:16] LABS: Basophils # (auto) 0.1 10 ^3/uL (0-0.2); Eosinophils # (auto) 0.4 10 ^3/uL (0-0.8); Hemoglobin 10.1 g/dL (12.2-16.2); Lymphocytes # (auto) 1.8 10 ^3/uL (0.4-5.4); Monocytes # (auto) 0.7 10 ^3/uL (0-1.3); Monocytes % (auto) 5.1 % (0.0-12.0); Neutrophils # (auto) 11.1 10 ^3/uL (1.6-8.6)
[2020-06-03 08:20] LABS: Basophils % (auto) 0.7 % (0.0-2.0); Eosinophils % (auto) 2.5 % (0.0-7.0); Hematocrit 32.3 % (36.0-46.0); Lymphocytes % (auto) 12.8 % (10.0-50.0); Mean Corpuscular Hemoglobin 26.6 pg (28.0-32.0); Mean Corpuscular Hgb Conc. 31.4 g/dL (32.0-36.0); Mean Corpuscular Volume 84.6 fL (80.0-100.0); Neutrophils % (auto) 78.9 % (37.0-80.0); Platelet Count (auto) 415 10^3/uL (140-450); Red Blood Cells 3.81 10^6/uL (4.0-5.20); Red Cell Distribution Width 17.3 % (11.8-14.3); White Blood Cell 14.1 10^3/uL (4.4-10.8)
[2020-06-03 08:30] VITALS: BP 148/99
--- NOTE | 2020-06-03 08:30 | NUR ---
Opening Note Assumed care of patient, she is A & O x 3, she repeats the same statements over and over. Patient yells for inappropriate things. POC discussed with patient. She refuses to turn at this time. Educated patient regarding bed sores and turning. Will continue to monitor and attempt to turn patient. Bed is in lowest, locked position, call light within reach. Bed alarm on.
[2020-06-03 08:31] LABS: Potassium 4.1 mmol/L (3.5-5.1)
[2020-06-03 08:41] LABS: BUN/Creatinine Ratio 16.7
[2020-06-03 08:42] LABS: Calcium 7.4 mg/dL (8.5-10.1); Magnesium 1.7 mg/dL (1.6-2.6)
--- NOTE | 2020-06-03 10:00 | NUR ---
Patient refusing to turn at this time. Educated patient the importance of turning because she has bed sores. Will attempt again in an hour.
[2020-06-03] MEDS: FLUCONAZOLE 200MG/100ML 100 ML IV SCH (11:08)
[2020-06-03] MEDS: SODIUM CHLORIDE 0.9% 1,000 ML IV SCH (11:08)
--- NOTE | 2020-06-03 11:25 | NUR ---
Patient allowed me remove pillows and reposition.
[2020-06-03] MEDS: LINEZOLID 600MG/300ML 300 ML IV SCH ×2 (12:45→21:44)
[2020-06-03 12:49] VITALS: BP 135/73
--- NOTE | 2020-06-03 13:00 | NUR ---
Patient refused turning.
[2020-06-03] MEDS ORDERED: HALOPERIDOL LACTATE 5 MG/ML INJ VIAL IM PRN (14:45)
[2020-06-03 16:33] VITALS: BP 108/71
[2020-06-03] MEDS: MAGNESIUM SULFATE 1GM/100ML 100 ML IV SCH ×2 (16:39→18:42)
--- NOTE | 2020-06-03 17:00 | NUR ---
Patient allowed turning. Patient colostomy bag leaking, will try to get a colostomy bag from materials management. ARISTEO access is limited.
--- NOTE | 2020-06-03 19:20 | NUR ---
Opening Shift Note Assumed care of patient. Patient AOx3. Patient knows name and time and frequently asks the same questions. Patient needs to be reoriented to surroundings and situation. Patient constantly needs reassurance of situation and is very dependent. Patient bed locked in lowest position and HOB at 45 degrees. New Opti-foam dressing re-applied to sacrum. Wound is draining serosanguineous fluid. No s/s of distress or SOB. Patient call light is within reach. Will continue to monitor.
[2020-06-03 22:00] VITALS: BP 135/71
[2020-06-04 05:00] VITALS: BP 123/82
[2020-06-04] MEDS: PIPERACILLIN-TAZOB 3.375GM 100 ML IV SCH ×3 (05:37→21:56)
[2020-06-04] MEDS: D5W/SOD CHL 0.9%/KCL 40MEQ 1,000 ML IV SCH (05:51)
--- NOTE | 2020-06-04 08:10 | NUR ---
Opening Note Assumed care of patient, she is A & O x3, no s/s of distress, patient has periods of forgetfulness and repetition, she cannot remember when things have been done for her. POC discussed. Patient turned, colostomy emptied 75 ml out. Will continue to monitor, bed is in lowest, locked position, call light within reach, bed alarm on. Patient is on specialty mattress at this time, pillow under the legs to elevate heels.
[2020-06-04 09:00] VITALS: BP 136/77
--- NOTE | 2020-06-04 09:16 | NUR ---
Dr. Baker at bedside. Informed Dr. Baker that patient is beginning to have edema to all extremities, patient tolerating clear liquid diet well. Orders received read back and verified.
[2020-06-04] MEDS: FLUCONAZOLE 200MG/100ML 100 ML IV SCH (10:36)
--- NOTE | 2020-06-04 12:03 | NUR ---
Nutrition Followup Notes Wt: 61.6 kg Pt was awake and oriented when rounded this am. Pt reports appetite is good, tolerating CLD. Pt is consuming a good amount of CLD per RN note pt with 92% avg intake of CLD. Pt diet to advance to mechanical soft, will monitor intake and tolerance of advanced diet Est Energy needs: 2136-1681 kcals (20-23 kcal/kgBW), Est Protein needs: 57-62 gms/day (1.0-1.1 gm/kgBW). Will continue to monitor and reassess prn. LABS: Creat 0.42L, Ca 7.4L, Alb 1.9L GI: Pt had 100 ml of stool 06/03 per RN doc BS: 10 high risk. Refer to wound assessment report for further details. PES: Resolved diet adv to mech soft 1) Increased nutrient needs aeb pt is currently NPO r/t pt with no PO intake Altered nutrition related lab values aeb hypokalemia, elev RFTs, hypocalcemia, hypoalbuminemia r/t current/chronic medical condition Comments: Will continue to monitor PO status, skin status, pertinent labs and weight trends. Will f/u in 3-5 days Rec:1) pt po intake >75% of advanced diet 2) If albumin continues trending down with improved RFTs consider Prostat 1 pkt BID. 3) Continue current plan of care
[2020-06-04] MEDS: LINEZOLID 600MG/300ML 300 ML IV SCH ×2 (12:30→21:56)
[2020-06-04 13:07] VITALS: BP 103/69
--- NOTE | 2020-06-04 14:31 | NUR ---
Paged Dr. Baker to communicate KUB result.
--- NOTE | 2020-06-04 15:00 | NUR ---
Wound Care Changed Dressings using Wound care orders. Patient tolerated well. Patient refused bed bath at this time, all linens changed. She was adamant she did not want a bed bath. Educated patient regarding hygiene and wound care. Will continue to monitor.
[2020-06-04 16:45] VITALS: BP 116/74
[2020-06-04 21:00] VITALS: BP 124/78
--- NOTE | 2020-06-04 23:16 | NUR ---
PATIENT REFUSING TURNING AT THIS TIME educated patient that wounds will get worse and new wounds can develop if she is not turned and repositioned frequently. Patient continues to refuse and says "no thank you, I am good." Will continue to educate patient and encourage turning and repositioning.
--- NOTE | 2020-06-05 00:25 | NUR ---
ROUNDS patient resting in bed with no s/s of distress. HOB elevated. Will continue care.
--- NOTE | 2020-06-05 04:44 | NUR ---
colostomy bag changed at this time. patient tolerated well.
--- NOTE | 2020-06-05 04:45 | NUR ---
repositioned Patient allowed to be repositioned at this time and adjusted some pillows. Changed patient into a new gown. Offered to give a bed bath. Patient refused bed bath. Educated patient on proper hygiene. patient verbalized understanding but still refusing. Will continue care.
[2020-06-05 05:00] VITALS: BP 129/78
[2020-06-05] MEDS: PIPERACILLIN-TAZOB 3.375GM 100 ML IV SCH ×2 (05:56→13:21)
--- NOTE | 2020-06-05 09:30 | NUR ---
Opening Shift Note Assumed care of patient, awake and alert with some confusion. No S/S of distress/SOB or pain. Instructed on POC and to call for assist PRN, will continue to monitor for changes Q1hr and PRN.
[2020-06-05] MEDS: FLUCONAZOLE 200MG/100ML 100 ML IV SCH (09:46)
--- NOTE | 2020-06-05 11:10 | NUR ---
Dr. Baker discuss with Brittney (POCristiane) and agreed to DC patient home with hospice today.
[2020-06-05] MEDS: LINEZOLID 600MG/300ML 300 ML IV SCH (11:14)
--- NOTE | 2020-06-05 13:10 | NUR ---
Covid inhouse sent.
[2020-06-05 13:14] VITALS: BP 131/85
--- NOTE | 2020-06-05 13:29 | NUR ---
Received a call from Hao LARIOS stated pickling solution maker time at 3 PM. Left a message to Brittney for pickling solution maker time.
--- NOTE | 2020-06-05 13:36 | NUR ---
Spoke to Dr. Baker regarding [facility] covid is neg. But inhouse covid is pending result. Per MD patient can DC home, no need to wait for result.
--- NOTE | 2020-06-05 15:00 | NUR ---
Dressing changed to all wounds per MD order.
--- NOTE | 2020-06-05 15:06 | NUR ---
Wound pictures taken to Sacral and Left buttock prior DC.
[2020-06-05 15:40] VITALS: BP 131/85
--- NOTE | 2020-06-05 15:57 | NUR ---
Informed SS regarding transportation is not here to steel pickler patient yet.
--- NOTE | 2020-06-05 16:44 | NUR ---
Per SS, transportation will be around 5 PM. patient informed.
--- NOTE | 2020-06-05 16:46 | NUR ---
Brittney (POA) aware of molded goods spot picker time around 5 PM.
--- NOTE | 2020-06-05 17:42 | NUR ---
Discharge instructions given as ordered. Encourage to follow up with PMD with [facility] as instructed. All questions and concerns addressed. Patient verbalized understanding. Medication reconciliation form completed and copy given to patient. IV removed with catheter intact, pressure dressing applied. Telemetry unit returned to ICU. Patient taken to vehicle via wheelchair with all personal belongings, accompanied by staff and family member. No distress noted at time of departure. Addendum: 06/05/20 at 1744 by NEAL BOUDREAUX RN Patient fruit picker by [facility] transportation.
--- NOTE | 2020-06-05 17:45 | NUR ---
Prior to admission pt was on service with [facility] at home with daughter. Contacted [facility] with [facility] and faxed clinical information to intake. Pt accepted for readmission and scheduled for case picker by [facility] at 5pm via [employer].
== END 2020-06-05 17:45 | disposition hospice, home (50) | DRG 871 ==
LOC: ER 12:14 → EDBD 12:14 → TELE 12:15 → TELE-WESTW 05-29 23:45
PROVIDERS: ADMIT Hospitalist; ATTEND Internal Medicine
DX: A41.9 Sepsis, unspecified organism (principal); E43 Unspecified severe protein-calorie malnutrition; L89.324 Pressure ulcer of left buttock, stage 4; L89.154 Pressure ulcer of sacral region, stage 4; N39.0 Urinary tract infection, site not specified; M86.9 Osteomyelitis, unspecified; K56.600 Partial intestinal obstruction, unspecified as to cause; E86.0 Dehydration; E87.6 Hypokalemia; N28.9 Disorder of kidney and ureter, unspecified; N31.9 Neuromuscular dysfunction of bladder, unspecified; J44.9 Chronic obstructive pulmonary disease, unspecified; F03.90 Unspecified dementia, unspecified severity, without behavioral disturbance, psychotic disturbance, mood disturbance, and anxiety; Z66 Do not resuscitate; Z51.5 Encounter for palliative care; Z74.01 Bed confinement status; Z98.1 Arthrodesis status; Z93.3 Colostomy status; Z68.23 Body mass index [BMI] 23.0-23.9, adult; Z20.828 Contact with and (suspected) exposure to other viral communicable diseases
CPT/HCPCS: 36415; 71045; 74018; 74176; 74250; 80048; 80053; 80061; 81001; 82150; 83605; 83690; 83735; 84484; 85025; 85610; 85730; 87040; 87081; 87086; 87088; 87426; G0378; J1450; J2001; J2405; J2543; J3480; J3490